=== PATIENT | female | born 1985 | race Caucasian/White ===

== ENCOUNTER 2018-12-24 09:32 | Outpatient (REF) | payer BC, SELFPAY ==
[2018-12-24 13:09] LABS: Cholesterol 226 mg/dL (50-200); Glucose 95 mg/dL (70-100); HDL Cholesterol 56 mg/dL (40-60); LDL CHOLESTEROL 141 mg/dL (<100); Triglyceride 109 mg/dL (30-150)
== END 2018-12-24 09:52 ==
LOC: NCHCN 09:32
PROVIDERS: PCP Nurse Practitioner Family; Visit Provider Nurse Practitioner Family
DX: Z00.00 Encounter for general adult medical examination without abnormal findings (principal); Z13.1 Encounter for screening for diabetes mellitus; Z13.220 Encounter for screening for lipoid disorders
CPT/HCPCS: 80061; 82947; 83721

== ENCOUNTER 2019-03-18 12:51 | Outpatient (REF) | payer BC, SELFPAY ==
[2019-03-19 14:52] LABS: Chlamydia Result Negative; GC Result Negative; Specimen Description CERVIX
== END 2019-03-18 13:11 ==
LOC: LBN 12:51
PROVIDERS: PCP Nurse Practitioner Family; Visit Provider Nurse Practitioner Family
DX: Z11.3 Encounter for screening for infections with a predominantly sexual mode of transmission (principal)
CPT/HCPCS: 87491; 87591

== ENCOUNTER 2020-01-10 01:00 | Outpatient (CLI) | payer BC, SELFPAY ==
--- NOTE | 2020-01-10 10:47 | DI.MAMMO_ITS ---
EXAM: MAMMO SCREENING CLINICAL HISTORY: FAMILY H/O BREAST CA, Z80.3, [facility], Z00.00 TECHNIQUE: Mammograms were interpreted according to the usual protocol including computer analysis w [employer] CAD system, tomosynthesis and C-view imaging. COMPARISON: Baseline examination FINDINGS: The breasts are composed of heterogeneously dense fibroglandular densities, Breast Density category C . No suspicious masses or suspicious microcalcifications are seen. No skin thickening or abnormal axillary lymph nodes are seen. There has been no significant change from prior exams. IMPRESSION: BI-RADS Category 1: Negative mammogram. Yearly screening mammography is recommended. Breast density category C, heterogeneously dense tissue which decreases the sensitivity of the mammog anastacio. The mammogram demonstrates the patient's breast tissue is dense. Dense breast tissue is very common a nd is not abnormal but dense breast tissue can make it harder to find cancer on a mammogram. Also, de nse breast tissue may increase breast cancer risk. This information about the result of the mammogram report was provided to the patient to raise their awareness. Use this report when you speak with the patient about their risks for breast cancer, which includes their family history. At that time, you may recommend additional screening tests (Ultrasound or MRI) as they might be useful based on their r isk. A negative radiographic report should not delay biopsy if a dominant or clinically suspicious mass is present. Up to ten percent of cancers are not identified on mammography. A negative report may reinforce clinical impression. Adenosis and dense breasts may obscure an underlying neoplasm. False positive reports average 6 to 10%.
== END 2020-01-10 01:20 ==
PROVIDERS: PCP Nurse Practitioner Family; Visit Provider Nurse Practitioner Family
DX: Z00.00 Encounter for general adult medical examination without abnormal findings (principal); Z12.31 Encounter for screening mammogram for malignant neoplasm of breast; Z80.3 Family history of malignant neoplasm of breast
CPT/HCPCS: 77063; 77067

== ENCOUNTER 2020-10-09 03:26 | Outpatient (CLI) | payer BC, SELFPAY ==
[2020-10-09 11:21] LABS: Abs Immature Grans 0.03 10^3/uL (0.0-0.06); Absolute Basophil Count 0.04 10^3/uL (0.0-0.2); Absolute Eosinophil Count 0.05 10^3/uL (0.0-0.7); Absolute Lymphocyte Count 1.99 10^3/uL (1.2-3.4); Absolute Monocyte Count 0.55 10^3/uL (0.1-0.8); Absolute Neutrophil Count 3.86 10^3/uL (1.2-6.7); Basophils % 0.6; Eosinophils % 0.8; HCT 36.9 % (36.0-46.0); HGB 12.4 g/dL (11.2-15.7); Immature Grans % 0.5; Lymphocytes % 30.5; MCH 30.6 pg (27.0-33.0); MCHC 33.6 % (32.0-36.0); MCV 91.1 fL (80-95); MPV 10.3 fL (8.0-11.0); Monocytes % 8.4; Neutrophils % 59.2; Nucleated RBC 0 %; Platelet Count 224 10^3/uL (130-400); RBC 4.05 10^6/uL (3.93-5.22); RDW 11.9 % (11.7-14.6); RDW-SD 39.1 fL; WBC 6.52 10^3/uL (4.4-10.8)
[2020-10-09 12:05] LABS: TSH (W/Ref FT4) 1.48 uIU/mL (0.36-3.74)
[2020-10-09 12:33] LABS: *AMPHETAMINES SCREEN URINE Negative (Negative); *BARBITURATES SCREEN URINE Negative (Negative); *BENZODIAZEPINES SCREEN URINE Negative (Negative); Cannabinoids THC Negative (Negative); Cocaine Screen,Urine Negative (Negative); METHADONE URINE SCREEN Negative (Negative); OPIATES URINE SCREEN Negative (Negative)
[2020-10-09 12:41] LABS: Tricyclic Antidepressants Negative (Negative)
[2020-10-10 10:09] LABS: Hepatitis B Surface Ag Negative (Negative)
[2020-10-10 10:24] LABS: Rubella IgG Ab (UVM) Positive (See Note); Varicella IgG Antibody Positive (See Note)
[2020-10-10 10:28] LABS: Syphilis Serology (RPR) Negative (Negative)
[2020-10-10 10:47] LABS: HIV-1/2 Ag & Ab Screen Negative (Negative)
[2020-10-10 10:57] LABS: Hepatitis C Ab w Rflx HCV PCR Negative (Negative)
[2020-10-10 14:50] LABS: Chlamydia Result Negative (Negative); GC Result Negative (Negative)
[2020-10-12 10:54] LABS: Buprenorphine Negative ng/mL (Cutoff: 5.0); Norbuprenorphine Negative ng/mL (Cutoff: 2.5)
[2020-10-17 01:00] LABS: Specimen WB Whole Blood
[2020-10-18 22:08] LABS: Specimen WB Whole Blood
== END 2020-10-09 03:27 | disposition home or self-care (01) ==
LOC: LBO 03:26
PROVIDERS: Advanced Practice Midwife; PCP Nurse Practitioner Family; Visit Provider Advanced Practice Midwife
DX: Z34.91 Encounter for supervision of normal pregnancy, unspecified, first trimester (principal); Z11.3 Encounter for screening for infections with a predominantly sexual mode of transmission; Z11.4 Encounter for screening for human immunodeficiency virus [HIV]; Z11.59 Encounter for screening for other viral diseases; Z01.84 Encounter for antibody response examination
CPT/HCPCS: 36415; 80307; 81329; 86787; 86803; 86850; 86900; 86901; 87340; 87389; 87491; 87591; 81220; 84443; 85025; 86592; 86762; 87086; 87480; 87510; 87660

== ENCOUNTER 2020-10-09 13:13 | Outpatient (REF) | payer BC, SELFPAY ==
--- NOTE | 2020-10-09 10:20 | PAPFT_PTH ---
PATIENT: Sanaz Avendaño LOC: [place] U#:[id number] AGE/SX: 34/F ROOM: RE10/09/[address]: Brandy Jim CNM : 1985 BED: DIS: 10/09/2020 SPEC #: [id number] RECD: 10/09/20 13:22 STATUS: BOB RERanjith #: [id number] SANIYA: 10/09/20 10:[address]: Brandy Jim DEPT: [facility] Cytology RECD BY: Angela Kruse ENTERED: 10/09/20 13:22 SP TYPE: PAPFT OTHR DR: Kathy Larios Tissues: 1 - CX/ENDOCX FOR PAP SMEARS Procedures: PAP THIN PREP/UVM Screening HPV DNA PROBE Comments: [id number]
== END 2020-10-09 13:14 | disposition home or self-care (01) ==
LOC: LBN 13:13
PROVIDERS: PCP Nurse Practitioner Family; Visit Provider Advanced Practice Midwife
DX: Z12.4 Encounter for screening for malignant neoplasm of cervix (principal); Z11.51 Encounter for screening for human papillomavirus (HPV)
CPT/HCPCS: 88142; 87624

== ENCOUNTER 2020-11-07 07:28 | Outpatient (CLI) | payer BC, SELFPAY ==
[2020-11-07 14:36] LABS: Kit/Specimen SENT
== END 2020-11-07 07:29 | disposition home or self-care (01) ==
LOC: LBO 07:35
PROVIDERS: PCP Nurse Practitioner Family; Visit Provider Advanced Practice Midwife
DX: Z34.92 Encounter for supervision of normal pregnancy, unspecified, second trimester (principal); Z36.89 Encounter for other specified antenatal screening
CPT/HCPCS: 36415

== ENCOUNTER 2021-01-30 03:58 | Outpatient (CLI) | payer BC, SELFPAY ==
[2021-01-30 09:44] LABS: HCT 35.6 % (36.0-46.0); HGB 11.8 g/dL (11.2-15.7); MCHC 33.1 % (32.0-36.0); MCV 93.4 fL (80-95); MPV 10.2 fL (8.0-11.0); Platelet Count 205 10^3/uL (130-400); RBC 3.81 10^6/uL (3.93-5.22); RDW 12.6 % (11.7-14.6); RDW-SD 43.1 fL; WBC 7.96 10^3/uL (4.4-10.8)
[2021-01-30 09:58] LABS: Glucose,1 Hr (Glucola) 136 mg/dL (80-140)
== END 2021-01-30 03:59 | disposition home or self-care (01) ==
LOC: LBO 03:58
PROVIDERS: PCP Nurse Practitioner Family; Visit Provider Advanced Practice Midwife
DX: O09.523 Supervision of elderly multigravida, third trimester (principal); O36.0130 Maternal care for anti-D [Rh] antibodies, third trimester, not applicable or unspecified
CPT/HCPCS: 36415; 82950; 85027; 86850; 90384

== ENCOUNTER 2021-02-02 01:37 | Outpatient (CLI) | payer BC, SELFPAY ==
[2021-02-02 09:25] LABS: Glucose 1 Hour 131 mg/dL
[2021-02-02 11:40] LABS: Glucose 3 Hour 67 mg/dL
== END 2021-02-02 01:38 | disposition home or self-care (01) ==
LOC: LBO 01:37
PROVIDERS: PCP Nurse Practitioner Family; Visit Provider Advanced Practice Midwife
DX: O26.893 Other specified pregnancy related conditions, third trimester (principal); R73.09 Other abnormal glucose; Z3A.28 28 weeks gestation of pregnancy
CPT/HCPCS: 36415; 82951

== ENCOUNTER 2021-03-20 17:50 | Outpatient (REF) | payer BC, SELFPAY ==
[2021-03-20 17:30] LABS: *AMPHETAMINES SCREEN URINE Negative (Negative); *BARBITURATES SCREEN URINE Negative (Negative); *BENZODIAZEPINES SCREEN URINE Negative (Negative); Cannabinoids THC Negative (Negative); Cocaine Screen,Urine Negative (Negative); METHADONE URINE SCREEN Negative (Negative); OPIATES URINE SCREEN Negative (Negative)
[2021-03-20 17:31] LABS: Tricyclic Antidepressants Negative (Negative)
[2021-03-27 09:50] LABS: Buprenorphine Negative ng/mL (Cutoff: 5.0); Norbuprenorphine Negative ng/mL (Cutoff: 2.5)
== END 2021-03-20 17:51 | disposition home or self-care (01) ==
LOC: LBN 17:50
PROVIDERS: PCP Nurse Practitioner Family; Visit Provider Advanced Practice Midwife
DX: Z34.93 Encounter for supervision of normal pregnancy, unspecified, third trimester (principal); Z3A.36 36 weeks gestation of pregnancy
CPT/HCPCS: 80307

== ENCOUNTER 2021-03-27 19:14 | Outpatient (REF) | payer BC, SELFPAY | END 2021-03-27 19:15 | disposition home or self-care (01) | LOC: LBN 19:14 | PROVIDERS: PCP Nurse Practitioner Family; Visit Provider Advanced Practice Midwife | DX: Z34.93 Encounter for supervision of normal pregnancy, unspecified, third trimester (principal); Z36.85 Encounter for antenatal screening for Streptococcus B; Z3A.36 36 weeks gestation of pregnancy | CPT/HCPCS: 87081 ==

== ENCOUNTER 2021-04-14 21:14 | Inpatient (IN) | payer BC, SELFPAY ==
--- NOTE | 2021-04-14 21:24 | HPE_ITS ---
Date of service: 04/14/21 Time of Service: 21:54 Assessment and Plan Assessment and plan (1) 39 weeks gestation of : Status: Acute Assessment and plan: A: 35 yo @ 39+3 wks, SROM clear since 1700 confirmed, early labor CF carrier, AMA, Rh neg (RhoGam @ 28 wks), GBS neg Umbilical hernia to be repaired S/P duodenal atresia repaired at Consults completed at [facility] No increased risk for SD or PPH on admission P: Admit to BC, CBC, T&S, COVID swab Pt desires to use tub, nitrous Encourage rest & oral hydration through the night Will advise pitocin augmentation in the morning if not progressing (2) PROM with onset of labor within 24 hours of rupture: Status: Acute OB-HPI Labor/Delivery History of Present Illness Reason for Visit: LABOR @ 39 WEEKS Chief Complaint: Uterine Contractions; Suspected Rupture of Membranes , Associated Signs and Symptoms of Suspected ROM: Lost mucous plug along with gush of pink tinged fluid at 1700, has had periodic pink fluid trickle since then, wearing a pad. ; Maternal Discomfort , Associated Signs and Symptoms of Maternal Discomfort: Irregular mild contractions since last night, became more regular at 1700 but still 5-7 minutes apart, timed at 3-4 minutes apart at 2100, feeling mostly back pain.. HERSON Calculator Estimated Delivery Date Method Current WG Current Estimate 04/18/21 LMP (Certain) 39w 3d Other Estimates 04/16/21 Ultrasound #1 39w 5d History of Present Expected Delivery Route/Plan - CNM FOB/boyfriend - [facility] GBS negative Would like to use the tub Specific Issues/Plan 1. AMA at time of delivery 1a. desire [place] testing, dating US was not in chart on day of initial OB for PAP to be done will need to come back for this test 1b. Offered ref to [facility] for level 2 sono and MFM consult. [place] test neg 2. Desired SMA and CF orders placed 2a. CF trait +, offered FOB testing and Genetic counseling, patient to review with FOB who has no insurance and get back to us if further testing or counseling is desired. 2b. SMA neg 3. 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 Referral to [facility] for Level II US- Normal anatomic survey, repeat February 08 recheck GI system 3b. Plan for 30 wk appt with MD to look at abd scars and clear for delivery @ [facility], done 02/15/21 4. Risk increased for HTN due to nullip and AMA; will start low dose ASA therapy 5. Headaches which trigger nausea and vomiting, also constipation- magnesium daily recommended. 6. Umbilical hernia- She contacted surgery at [facility] who recommended that she schedule an appointment after delivery 7. Rh neg, 28 wk RhoGam given 01/30/21 8. Glucola at 28 wks 136; 3 hr GTT -WNL x 4 9. Both pt and FOB are COVID vaccinated Assessment: History Reviewed & Current Review of Systems All systems reviewed & are unremarkable except as noted in HPI and below Constitutional Constitutional: Reports as per HPI Cardiovascular Cardiovascular: Reports system reviewed and no additional complaints, except as documented Respiratory Respiratory: Reports as per HPI Gastrointestinal Gastrointestinal: Reports as per HPI Genitourinary Genitourinary: Reports system reviewed and no additional complaints, except as documented Musculoskeletal Musculoskeletal: Reports back pain Integumentary/Breasts Skin/Breast: Reports system reviewed and no additional complaints, except as documented Psychiatric Psychiatric: Reports system reviewed and no additional complaints, except as documented [facility] Medical History (Updated 04/14/21 @ 21:58 by Sharmila Nair) Elevated glucose Umbilical hernia 2011 no surgery to date Surgical History (Updated 10/09/20 @ 16:07 by Brandy Jim CNM) 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 , 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 Tear of knee, anterior cruciate ligament left knee 4 Seasons [facility] 2017 Family History (Updated 10/09/20 @ 09:43 by Brandy Jim CNM) Mother Breast cancer recurrence at 72 Hyperlipidemia Other Heart disease Social History (Updated 10/09/20 @ 10:49 by Brandy Jim CNM) Smoking/Tobacco Use Status: Former Tobacco Use Second Hand Exposure: No Smoking risk assessment performed?: Yes Drug use: Occasionally Counseling given: Yes Details: marijuana use sparsly in past, no current use Adopted: No Household members: spouse Housing: house Number of Children: 0 What is your relationship status?: living with partner Panel score (0-1 are the most socially isolated patients): 1 Seatbelt use: always Do you feel safe at home: Yes Do you feel safe in your relationship?: Yes Victim of physical abuse: No Victim of emotional abuse: No Victim of sexual abuse: No Would you like helpful sources: No Female Reproductive History Menstrual control method: none History History 3 Para 0 Hx # Term Pregnancies 0 Multiple births 0 Hx # Pregnancies 0 Ectopic pregnancies 0 AB induced 2 Hx Number of Living Children 0 AB spontaneous 0 Meds Allergies and Home Medications Allergies Allergy/AdvReac Type Severity Reaction Status Date / Time Sulfa (Sulfonamide AdvReac Intermediate hives Unverified 04/14/21 22:00 Antibiotics) DEET AdvReac Intermediate cold and Uncoded 04/14/21 22:00 clammy sweat, nausea Home Medications Medication Instructions Recorded Confirmed Type prenat.vits,carlota,kdt-ovoo-hytyr 1 tab PO DAILY 09/19/20 04/14/21 History aspirin 81 mg tablet,delayed 81 mg PO DAILY 11/06/20 04/14/21 History release magnesium oxide 400 mg PO DAILY 01/01/21 04/14/21 History Exam Physical Exam Vital signs: 136/84, 105, 18, 98.2 Vital Signs Reviewed: Yes Constitutional Constitutional: mild distress (pt smiling and conversant between contrx's, teary and with back pain during contrx's) Detailed Labor and Delivery Exam Dilation: 1.5 Effacement (%): 100 station: -2 Position: LOP Cervix position: posterior Consistency: soft HAUSER Score(Cervical Ripeness Score): 8 Amniotic Membrane Status: Ruptured Rupture Method: Spontaneous Amniotic Fluid: Clear and Afton Tinged Pooling: Positive Nitrazine: Positive Ferning: Present Contraction Frequency(min): q4-5 Contraction Duration(sec): 60 Contraction Intensity: Mild/Moderate Fetus A Heart Rate Baseline: 130 Monitor Accelerations: 15 X 15 Monitor Decelerations: None Variability: Moderate (6-25 BPM) Presentation: Cephalic Categories: Category I Est. Weight: 7 lb 11.459 oz Est. Weight: 3500 gms Date of Membrane Rupture: 04/14/21 Time of Membrane Rupture: 17:00 HEENT Exam HEENT Exam: Normal Neck Exam Neck Exam: Normal Chest/Brest/Axilla Exam Chest Exam: Normal Breast Exam Breast Exam: Not Done Respiratory Exam Respiratory Exam: Normal Cardiovascular Exam Cardiovascular Exam: Normal Abdominal Exam Abdominal Exam: Normal (gravid, nontender) Rectal Exam Rectal Exam: Not Done Exam Exam: Normal Extremities Exam Extremities Exam: Normal Back/Spine/Pelvis Exam Back Exam: Normal Pelvis Adequate: Yes Skin Exam Skin Exam: Normal Neurological Exam Neurological Exam: Normal Psychiatric Exam Psychiatric Exam: Normal Results Results Group Beta Strep: Negative Blood Type: B- Rubella Status: Immune Varicella Immunity: Immune Risk Assessment Risk for Shoulder Dystocia Historical/Initial OB: NEGATIVE FOR: Pelvic Abnormality, Pre- BMI>30, Previous Shoulder Dystocia or Previous Macrosomia Increased Risk?: Yes Counseling: EFW in 92nd percentile at 30 wk ultrasound, primipara, nml 3 hr GTT at 28 wks Date/Initial: 10/09/20 Delivery Plan @ 36wks: NVD planned Risk for Pre-Eclampsia Daily Dose ASA Indicated: Yes Date Initiated/Initials: 10/09/20 Yes, if one or more: NEGATIVE FOR: Hx Pre-E/Gest HTN, Chronic HTN, Multiple Gestation, Pre-gestational DM, Renal Disease, Systemic Lupus or APA Syndrome Yes, if 2 or more: POSITIVE FOR: Nulliparity and Age>= 35 yrs; NEGATIVE FOR: >10yr btwn pregnancies, BMI>30, ethinicty, Mother/Sister w/ Pre-E or Previous IUGR Risk for Post- Hemorrhage Initial: NEGATIVE FOR: Multiple Gestation, Previous PPH, Known Clotting Deficiency, Grand Multiparity or Anticoagulation At Risk?: No Counseled re: Active Management: Yes Risks Reviewed Risks Reviewed Upon Admission: Yes
[2021-04-14 21:40] VITALS: BP 136/84; PULSE 105; RESP 18; TEMP 36.8
[2021-04-14 22:13] VITALS: BP 136/84; PULSE 105; RESP 18; TEMP 36.8
[2021-04-14 22:24] LABS: HCT 40.6 % (36.0-46.0); HGB 13.6 g/dL (11.2-15.7); MCH 30.8 pg (27.0-33.0); MCHC 33.5 % (32.0-36.0); MCV 91.9 fL (80-95); MPV 11.6 fL (8.0-11.0); Platelet Count 216 10^3/uL (130-400); RBC 4.42 10^6/uL (3.93-5.22); RDW 12.2 % (11.7-14.6); RDW-SD 41.3 fL; WBC 11.68 10^3/uL (4.4-10.8)
[2021-04-14 22:25] LABS: Source Nasal/Nares
[2021-04-14] MEDS: Mylanta Suspension 30 ML CUP PO (22:51)
[2021-04-14 23:18] LABS: COVID-19 PCR Negative (Negative)
[2021-04-15] VITALS (34 sets, daily range): BP systolic 115–142; BP diastolic 60–91; PULSE 73–109; RESP 16–18; TEMP 36.4–37.7; O2SAT 94–100; BMI 30.7
[2021-04-15] MEDS: Calcium Carbonate *TUMS* 500 MG CHEW 1000 MG PO ×3 (03:10→15:59)
--- NOTE | 2021-04-15 07:10 | W.PM.OBNL1 ---
Date of service: 04/15/21 Time of Service: 07:10 Pelvic Exam Dilation: 6 Effacement (%): 100 station: -1 Position: LOT Cervix Position: anterior Consistency: soft Vaginal Exam Presentation: Cephalic Contractions Monitor Mode: External Contraction Frequency(min): q3-4 Intensity: Moderate Fetus A Monitor: External (US) Heart Rate Baseline: 135 Variability: Moderate (6-25 BPM) Categories: Category I Decelerations: None Amniotic Membrane Status: Ruptured (since 1699 yesterday) Rupture Method: Spontaneous Amniotic Fluid: Pen Mar Tinged Assessment and Plan Assessment and plan (1) PROM with onset of labor within 24 hours of rupture: Status: Acute Assessment and plan: A: Active labor in primipara SROM x14 hrs, GBS neg Category 1 tracing at this time P: Expectant management. Anticipate Intermittent auscultation per protocol Encourage oral hydration Comfort measures as desired, Pain management options reviewed Qualifiers: PROM gestational age: full term Qualified Code(s): O42.02 - Full-term premature rupture of membranes, onset of labor within 24 hours of rupture Objective Abnormal lab results 04/14/21 Range/Units 22:10 WBC 11.68 H (4.4-10.8) 10^3/uL MPV 11.6 H (8.0-11.0) fL Temp Pulse Resp BP 98.2 F 105 H 18 136/84 04/14/21 22:13 04/14/21 22:13 04/14/21 22:13 04/14/21 22:13 Laboratory Results WBC 11.68 10^3/uL (4.4-10.8) H 04/14/21 22:10 RBC 4.42 10^6/uL (3.93-5.22) 04/14/21 22:10 Hgb 13.6 g/dL (11.2-15.7) 04/14/21 22:10 Hct 40.6 % (36.0-46.0) 04/14/21 22:10 MCV 91.9 fL (80-95) 04/14/21 22:10 MCH 30.8 pg (27.0-33.0) 04/14/21 22:10 MCHC 33.5 % (32.0-36.0) 04/14/21 22:10 RDW 12.2 % (11.7-14.6) 04/14/21 22:10 Plt Count 216 10^3/uL (130-400) 04/14/21 22:10 MPV 11.6 fL (8.0-11.0) H 04/14/21 22:10 COVID-19 Source Nasal/Nares 04/14/21 22:05 SARS-CoV-2 (PCR) Negative (Negative) 04/14/21 22:05 Patient ABO/Rh B Negative 04/14/21 22:10 Antibody Screen NEGATIVE 04/14/21 22:10 Subjective Interval history since last seen: Contractions continued through the night though pt was able to doze in between and has been using nitrous inhalant since 0300, is fairly comfortable lying on her left side. Results Abnormal Lab Findings:
--- NOTE | 2021-04-15 10:25 | W.PM.OBNL1 ---
Date of service: 04/15/21 Time of Service: 10:25 Pelvic Exam Dilation: 7 Effacement (%): 100 station: -1 Position: LOT Cervix Position: anterior Consistency: soft Vaginal Exam Presentation: Cephalic Contractions Monitor Mode: Palpation Contraction Frequency(min): q2-4 Contraction Duration(sec): 60-90 Intensity: Moderate/Strong Fetus A Monitor: Doppler Heart Rate Baseline: 135 FHR Rhythm: Regular Accelerations: Present Decelerations: None Assessment and Plan Assessment and plan (1) PROM with onset of labor within 24 hours of rupture: Status: Acute Assessment and plan: A: Active labor, progressed to 7/100% vtx -1 SROM x17 hrs P: Continue expectant management Comfort measures as desired, currently pt is using tub & nitrous Monitor progress Anticipate Qualifiers: PROM gestational age: full term Qualified Code(s): O42.02 - Full-term premature rupture of membranes, onset of labor within 24 hours of rupture Objective Pt has been resting in bed since 0600, dozing or resting with eyes closed Using nitrous with good effect Reports increasing intensity of labor, blood tinged fluids continue vaginally Normotensive, afebrile FOB at bedside providing effective support FHT reassuring by intermittent auscultation Subjective Interval history since last seen: Pt reports contractins seem to be more frequent and stronger, back pain has lessened but is replaced with increased pelvic pressure. Using nitrous for past few hours, desires to get into the tub.
[2021-04-15] MEDS: Mylanta Suspension 30 ML CUP PO (11:04)
--- NOTE | 2021-04-15 13:56 | W.PM.OBNL1 ---
Date of service: 04/15/21 Time of Service: 13:57 Informed Consent Informed Consent: Augmentation of Labor and Regional Anesthesia Fetus A Monitor: External (US) Heart Rate Baseline: 135 Presentation: Cephalic Variability: Moderate (6-25 BPM) Categories: Category I Accelerations: 15 X 15 Decelerations: None Assessment and Plan Assessment and plan (1) PROM with onset of labor within 24 hours of rupture: Status: Acute Qualifiers: PROM gestational age: full term Qualified Code(s): O42.02 - Full-term premature rupture of membranes, onset of labor within 24 hours of rupture (2) Slow slope active phase of labor: Status: Acute Assessment and plan: A: Inadequate contraction pattern No cvx change for 3 hrs SROM x21 hrs Category 1 tracing P: After R&B discussed, pt opts for pit aug and regional anesthesia IV access initiated, will bolus 500 ml D5LR, then 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, will discuss intrathecal vs epidural Objective Vital Signs Reviewed: Yes Objective Narrative Objective Narrative: Cvx check at 1300 is unchanged from exam at 1000 Anterior cvx lip is becoming edematous @ 7/100% vtx -1 Category 1 tracing continues Pt has not eaten since yesterday, minimal oral fluid intake Voided large amt early this morning, and 750 ml dark yellow urine at 1300 Attempted to eat jello but vomited after 2 bites Options for pit aug, IV hydration, and regional anesthesia discussed in detail Normotensive, afebrile, has been coping well with labor Subjective Interval history since last seen: Soaked in tub for several hours using nitrous, then requested to return to bed for EFM tracing and cvx recheck at 1300 Results Abnormal Lab Findings:
[2021-04-15] MEDS: DEXTROSE 5%-LACTATED RINGERS 1,000 ML 500 ML IV (14:31)
[2021-04-15] MEDS: Normal Saline Flush 10 ML SYR IVP (14:31)
--- NOTE | 2021-04-15 14:49 | ANES.PREOP_ITS ---
General Info Date of Service Date Performed: 04/15/21 Height: 5 ft 6 in Weight: 86.183 kg Body Mass Index (BMI): 30.7 Meds Allergies and Home Medications Allergies Allergy/AdvReac Type Severity Reaction Status Date / Time Sulfa (Sulfonamide AdvReac Intermediate hives Unverified 04/15/21 11:06 Antibiotics) DEET AdvReac Intermediate cold and Uncoded 04/15/21 11:06 clammy sweat, nausea Home Medication Medication Instructions Recorded prenat.vits,carlota,jur-felk-wiyyq 1 tab PO DAILY 09/19/20 aspirin 81 mg tablet,delayed 81 mg PO DAILY 11/06/20 release magnesium oxide 400 mg PO DAILY 01/01/21 Current Visit Medications: Current Medications Generic Name Dose Route Start Last Admin Trade Name Freq PRN Reason Stop Dose Admin Al Hydrox/Mg Hydrox/Simethicone 30 ml 04/14/21 22:28 04/15/21 11:04 Mylanta Suspension 30 Ml Cup PO 30 ml Q3H PRN PRN Administration Calcium Carbonate 1,000 mg 04/15/21 03:05 04/15/21 07:56 Calcium Carbonate *Tums* 500 Mg Chew PO 1,000 mg QID PRN PRN Administration Ringer's Solution 1,000 mls @ 125 mls/hr 04/15/21 14:00 IV INFUSION MARCELINA Sodium Chloride 500 mls @ 0 mls/hr 04/15/21 13:54 Saline 500ml Bag IV PRN PRN As Directed Oxytocin/Sodium Chloride 30 unit in 500 mls @ 2 mls/hr 04/15/21 14:00 Pitocin/Normal Saline IV INFUSION [facility] Protocol 2 MILLIUNITS/MIN Dextrose/Lactated Ringer's 1,000 mls @ 500 mls/hr 04/15/21 14:00 04/15/21 14:31 Dextrose 5%-Lr IV 500 mls/hr INFUSION MARCELINA Administration IV Miscellaneous Supplies 1 each 04/15/21 14:00 Iv Access IV DIRECTED MARCELINA Sodium Chloride 0 ml 04/15/21 13:54 04/15/21 14:31 Normal Saline Flush 10 Ml Syr IVP 10 ml PRN PRN Administration PFSH Active Problems Active Problems: Problem Status Onset Code Slow slope active phase of labor O62.2 PROM with onset of labor within 24 hours of rupture O42.00 39 weeks gestation of Z3A.39 Allergy to sulfa drugs Z88.2 Umbilical hernia K42.9 Rh negative state in antepartum period O26.899, Z67.91 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 2017 Tobacco Smoking/Tobacco Use Status: Former Tobacco Use Second hand exposure: No Substance Use Substance use: Occasionally Substance use type: does not use and marijuana Counseling given: Yes Details: marijuana use sparsly in past, no current use Prental History History 3 Para 0 Hx # Term Pregnancies 0 Multiple births 0 Hx # Pregnancies 0 Ectopic pregnancies 0 AB induced 2 Hx Number of Living Children 0 AB spontaneous 0 Vital Signs and Lab Results Vital Signs Most Recent Vital Signs in EMR: Most Recent Vital Signs Temp Pulse Resp BP Pulse Ox 36.9 C 80 18 139/89 96 04/15/21 13:01 04/15/21 13:01 04/15/21 13:01 04/15/21 13:01 04/15/21 13:01 Lab Results Result Diagrams: 04/14/21 22:10 Blood Type / Crossmatch: Patient ABO/Rh B Negative 04/14/21 22:10 04/14/21 Antibody Screen NEGATIVE 04/14/21 22:10 04/14/21 Complete Blood Count: White Blood Count 11.68 10^3/uL (4.4-10.8) H 04/14/21 22:10 04/14/21 Red Blood Count 4.42 10^6/uL (3.93-5.22) 04/14/21 22:10 04/14/21 Hemoglobin 13.6 g/dL (11.2-15.7) 04/14/21 22:10 04/14/21 Hematocrit 40.6 % (36.0-46.0) 04/14/21 22:10 04/14/21 Platelet Count 216 10^3/uL (130-400) 04/14/21 22:10 04/14/21 Complete Metabolic Panel: No Data to Display Liver Function Panel: No Data to Display Coagulation Panel: No Data to Display Cardiac Panel: No Data to Display Arterial Blood Gas: No Data to Display Venous Blood Gas: No Data to Display Pancreas Panel: No Data to Display Thyroid Panel: No Data to Display Infectious Disease: Coronavirus (COVID-19)(PCR) Negative (Negative) 04/14/21 22:05 04/14/21 Coronavirus 2019 Source Nasal/Nares 04/14/21 22:05 04/14/21 Blood Cultures: No Data to Display Toxicology Panel: Urine Amphetamines Screen Negative (Negative) 03/20/21 09:00 03/20/21 Urine Benzodiazepines Screen Negative (Negative) 03/20/21 09:00 03/20/21 Urine Barbiturates Screen Negative (Negative) 03/20/21 09:00 03/20/21 Urine Cocaine Screen Negative (Negative) 03/20/21 09:00 03/20/21 Urine Methadone Screen Negative (Negative) 03/20/21 09:00 03/20/21 Urine Opiates Screen Negative (Negative) 03/20/21 09:00 03/20/21 Ur Tricyclic Antidepressants Screen Negative (Negative) 03/20/21 09:00 03/20/21 Ur Tetrahydrocannabinol (THC) Scrn Negative (Negative) 03/20/21 09:00 03/20/21 Panel: No Data to Display Anesthesia Assessment and Plan Anesthesia History Personal History: No History of Anesthesia Complications and PONV Family History: No Family History of Anesthesia Complications Exercise Tolerance Exercise Tolerance: Metabolic Equivalents>4 Pertinent Negatives Pertinent Negatives: No Major Cardiovascular Symptoms or Complaints and No Major Pulmonary Symptoms or Complaints Cardiac & Pulmonary Exam Cardiac Exam: Normal S1/S2 Heart Sounds Pulmonary Exam: Clear Bilateral Breath Sounds Airway Exam Known Difficult Airway: No Mallampati Class: 1 Mouth Opening: Normal (> 3cm) Thyromental Distance: Greater than 3 cm Neck Range of Motion: Full ROM Neck Circumference: Normal Teeth Condition: Normal Dentition ASA Classification ASA Score: ASA 2 Emergency Case?: No NPO Status NPO Status: NPO Clears >2 hours, Solids >8 hours Status Status: Confirmed Anesthesia Plan Resuscitation Status: Full Code Anesthesia Technique: Epidural Anesthesia Airway Planned: Natural Airway Pain Management: Surgeon and patient request nerve block Monitors Used: Standard Monitors
--- NOTE | 2021-04-15 15:22 | W.ANESNEU ---
Epidural/Spinal Catheter Date Performed: 04/15/21 Procedure Start: 14:55 Procedure Stop: 15:22 Requesting Provider: Sharmila Nair Procedure Location: Obstetrics Reason Performed: Labor Epidural Standard Monitors Applied: Blood Pressure, SpO2 and See EMR for corresponding vital signs Patient Position: Sitting Sedation Given (Indicate Dose Given): No Sedation given Patient Mental Status: Awake Sterility: Hand Hygiene, Surgical Cap, Surgical Mask, Sterile Gloves, Sterile Drape/Sheet, Eye Protection and Chlorhexidine Procedure Location: L3-L4 Interspace Epidural Needle: Tuohy 18 Gauge Needle Length: 3.5 Inch Needle Approach: Midline Epidural Procedure: Skin Prepped, Sterile Drape Placed, 1% Lidocaine to skin and subcutaneous tissue with 25G needle, Tuohy Needle placed, SAUL to Saline Used, Epidural Catheter Placed, Negative Heme, Negative CSF Flow and Tuohy Needle Removed Catheter Placed?: Catheter Placed Test Dose (Indicate Dose Given): 3ml 1.5% Lidocaine with 1:200K Epinephrine Given Loss of Resistance Depth (cm): 7 Catheter depth at skin (cm): 15 Dressing: Sorbaview Dressing Placed Epidural Provider Bolus (Indicate Dose Given): Total bolus dose given in 3-5 ml divided doses and Total Ropivacaine 0.1% with Fentanyl 2mcg/ml Given from pump (ml) Dose:: 10 mL Additives (Indicate Dose Given ): None Infusion Medication: Medication Infusion Began Medication Infusion: Ropivacaine 0.1% with Fentanyl 2mcg/ml Maintenance Infusion Rate (ml/hour): 12 PCEA Bolus Dose (ml): 5 Block Level: T10 Paresthesia: None Ultrasound: Not Used Number of Attempts (See previous attempts in note section): 1 Procedure Tolerated: No Complications Procedure Outcome: Successful Performed By: Marlyn Lemons
[2021-04-15] MEDS: Oxytocin/Normal Saline 30 UNIT/500 ML BAG 2 UNITS IV (15:32)
--- NOTE | 2021-04-15 19:33 | W.OBDELIVERY ---
Date of service: 04/15/21 Time of Service: 19:33 OB Labor/ Delivery Information Baby A Delivery Delivery Method: Spontaneaous Presentation: Cephalic Cephalic Position: Vertex Vertex Position: Left Occipital Anterior Breech Position: N/A Cord Description-Baby A: 3 Vessels Amniotic Fluid: Clear Estimated Blood Loss: 250 Delivery Outcome: Liveborn Transferred: Remains with Mother Note: Epidural placed by 1430 and pitocin augmentation begun by 1500, category 1 tracing continued. Pt napped and rested, then reported increasing rectal pressure and vomited several times. Cvx was found to be fully dilated with head at pubic arch. 2nd stage huddle completed, coached pushing resulted in of a vigorous female over attempted intact perineum, shoulders oblique and delivered easily. handed to mother's arms immediately, pitocin infusion begun. At 6 minutes the cord was clamped and cut by FOB, cord blood was collected and [place] placenta intact with 3 VC. First degree perineal laceration repaired with 3.0 Vicryl, small clots evacuated from os, minimal rubra. Excellent family bonding observed, apgars 8/9, weight 3800 gms Providers Nurse Electronic Gluing Machine Operator: Sharmila Nair Seamless Tube Drawer: Marlyn Lemons Nurse: Haven Jolley Nurse: Austin Kiran Labor/Delivery Information Number of Babies in Womb: 1 Steroids Given: None Reason Steroids Not Administered: N/A Group Beta Strep: Negative Rubella Status: Immune Blood Type: B- Varicella Immunity: Immune Medication in Delivery: Tums/Mylanta/Pitocin/Fent/Rop Maternal Complications: Premature Rupture of Membranes Shoulder Dystocia: No Stages of Labor Onset of Labor Date: 04/14/21 Onset of Labor Time: 14:00 Complete Dilatation Date: 04/15/21 Complete Dilatation Time: 18:05 Labor - Stage 1 Duration: 24 hours and 0 minutes ROM Baby A: 04/14/21 ROM Baby A: 17:00 ROM Total Time- Baby A: [id number] Delivery Date-Baby A: 04/15/21 Delivery Time-Baby A: 18:47 Labor Stage 2 Duration: 42 minutes Placenta Delivery Date-Baby A: 04/15/21 Placenta Delivery Time-Baby A: 19:01 Labor-Stage 3 Duration: 14 minutes Total Length of Labor-Baby A: 28 hours and 47 minutes Placenta Cultured: No Placenta Status: Delivered Baby A Infant Gender: Male Gestational Status: Term (39-41.6 wks) Gestational Age in Weeks/Days: 39 Weeks and 4 Days weight: 8 lb 6.041 oz Weight Comment: 3800 gms Score-1 Minute Interval(Baby A) Heart Rate-1 minute: 100 BPM or Greater Respiratory Effort- 1 minute: Spontaneous/Strong Cry Muscle Tone-1 minute: Minimal Flexion/Extension Reflex Response-1 minute: Prompt Response Color-1 minute: Bluish Hands or Feet Total Score-1 minute: 8 Score-5 Minute Interval(Baby A) Heart Rate- 5 minute: 100 BPM or Greater Respiratory Effort-5 minute: Spontaneous/Strong Cry Muscle Tone-5 minute: Active Movement Reflex Response-5 minute: Prompt Response Color-5 minute: Bluish Hands or Feet Total Score- 5 minute: 9
--- NOTE | 2021-04-15 23:16 | W.PM.OBPNV1 ---
Date of service: 04/16/21 Time of Service: 08:15 Assessment and Plan Assessment and plan (1) Term delivered: Status: Acute Assessment and plan: A: PPD#1, nml recovery off to a good start Satisfied with experience P: Declines BCM, plans NFP Will receive RhoGam today CBC pending Plan discharge to home tomorrow Subjective Subjective Patient comments: No complaints, Pain well controlled, Tolerating diet and Flatus present baby status: Doing well, Nursing well, Rooming in and Strong Bonding Observed [place] feeding status: Exclusively breast feeding Exam Physical Exam Vital signs: Temp Pulse Resp BP Pulse Ox 98.2 F 89 18 142/91 H 96 04/15/21 22:35 04/15/21 22:35 04/15/21 22:35 04/15/21 22:35 04/15/21 22:35 Vital Signs Reviewed: Yes Constitutional Constitutional: no acute distress HEENT Exam HEENT Exam: Normal Neck Exam Neck Exam: Normal Breast Exam Bilateral: Breast Exam: Normal and Soft Nipple Exam: Normal and Uninjured Respiratory Exam Respiratory Exam: Normal Cardiovascular Exam Cardiovascular Exam: Normal Abdominal Exam Abdomen: Other (nontender, soft) Fundal Exam Fundus: Below Umbilicus and Firm Rectal Exam Rectal Exam: Normal Exam Perineum: Repair Intact Extremities Exam Extremity Exam: Normal Back/Spine/Pelvis Exam Back Exam: Normal Skin Exam Skin Exam: Normal Neurological Exam Neurological Exam: Normal Psychiatric Exam Psychiatric Exam: Normal
[2021-04-16] VITALS: BP 125/70; PULSE 89; RESP 16; TEMP 36.8; O2SAT 97
[2021-04-16] MEDS: Acetaminophen 325 MG TAB 650 MG PO ×4 (00:13→21:38)
--- NOTE | 2021-04-16 00:53 | NUR.NOTE ---
Nursing Note:Pt states she involuntarily voided in shower at 2130. Fundus massaged firm 2 below U. Pt felt fundus when firm, encouraged to massage. Pt given Tylenol as requested for perineal pain. Pt encouraged to verbalize needs
[2021-04-16 07:29] LABS: HCT 35.2 % (36.0-46.0); HGB 12.1 g/dL (11.2-15.7); MCH 31.8 pg (27.0-33.0); MCHC 34.4 % (32.0-36.0); MCV 92.4 fL (80-95); MPV 11.7 fL (8.0-11.0); Platelet Count 195 10^3/uL (130-400); RBC 3.81 10^6/uL (3.93-5.22); RDW 12.4 % (11.7-14.6); RDW-SD 42.1 fL; WBC 12.06 10^3/uL (4.4-10.8)
[2021-04-16 08:10] VITALS: BP 131/87; PULSE 76; RESP 16; TEMP 36.7; O2SAT 99
--- NOTE | 2021-04-16 08:52 | W.ANESPOSTOP ---
Postoperative Evaluation Date, Time and Location Date Performed: 04/16/21 Time Performed: 08:53 Patient Location: Obstetrics Vital Signs Most Recent Imported Vital Signs: Most Recent Vital Signs Temp Pulse Resp BP Pulse Ox 36.8 C 89 16 125/70 97 04/16/21 00:00 04/16/21 00:00 04/16/21 00:00 04/16/21 00:00 04/16/21 00:00 Most Recent Manually Entered Vital Signs: Adult Blood Pressure: 131/87 Heart Rate: 76 Respirations: 16 Oxygen Saturation (%): 99 Temperature (C): 36.7 C Pain Score (0-10 Scale): 0 Pain Score Most Recent Pain Score: Most Recent Pain Score Pain Level [Genital] 6 04/16/21 00:00 Assessment Mental Status: Awake (Alert & Oriented to Patient Baseline) Airway and Respiratory Function: Patent airway with normal (patient baseline) respiratory exam Cardiovascular Function: Hemodynamically Stable Hydration Status: Adequately Hydrated Nausea & Vomiting: No Nausea or Vomiting Pain: Pt. Denies Any Pain Peripheral Nerve Block: Patient did not receive a nerve block
[2021-04-16 08:53] VITALS: BP 131/87; PULSE 76; RESP 16; TEMPC 36.7; O2SAT 99
[2021-04-16] MEDS: Calcium Carbonate *TUMS* 500 MG CHEW 1000 MG PO (09:48)
[2021-04-16] MEDS: Ibuprofen 600 MG TAB PO ×3 (09:48→21:39)
[2021-04-16 20:00] VITALS: BP 128/76; PULSE 80; RESP 18; TEMP 36.7; O2SAT 99
[2021-04-17 08:00] VITALS: BP 129/86; PULSE 63; RESP 14; TEMP 36.4
[2021-04-17] MEDS: Ibuprofen 600 MG TAB PO (08:48)
[2021-04-17] MEDS: Acetaminophen 325 MG TAB 650 MG PO (08:48)
--- NOTE | 2021-04-17 09:00 | W.PM.OBPNV1 ---
Date of service: 04/17/21 Time of Service: 09:00 Assessment and Plan Assessment and plan (1) Term delivered: Status: Acute Assessment and plan: A: PPD#2, nml recovery P: Declines BCM, plans NFP Discharge to home today Written instructions reviewed and given to pt F/up at 2 & 6 wks Subjective Subjective Patient comments: Pain well controlled, Tolerating diet and Flatus present [place] baby status: Doing well, Nursing well, Rooming in and Strong Bonding Observed feeding status: Exclusively breast feeding Exam Physical Exam Vital signs: Temp Pulse Resp BP Pulse Ox 98.0 F 80 18 128/76 99 04/16/21 20:00 04/16/21 20:00 04/16/21 20:00 04/16/21 20:00 04/16/21 20:00 Constitutional Constitutional: no acute distress HEENT Exam HEENT Exam: Normal Neck Exam Neck Exam: Normal Breast Exam Bilateral: Breast Exam: Normal and Soft Respiratory Exam Respiratory Exam: Normal Cardiovascular Exam Cardiovascular Exam: Normal Abdominal Exam Abdomen: Other (nontender, soft) Fundal Exam Fundus: Below Umbilicus and Firm Rectal Exam Rectal Exam: Normal Exam Perineum: Repair Intact Extremities Exam Extremity Exam: Normal Back/Spine/Pelvis Exam Back Exam: Normal Skin Exam Skin Exam: Normal Neurological Exam Neurological Exam: Normal Psychiatric Exam Psychiatric Exam: Normal Results Hemoglobin/Hematocrit: Hgb 12.1 g/dL (11.2-15.7) 04/16/21 06:47 Hct 35.2 % (36.0-46.0) L 04/16/21 06:47
--- NOTE | 2021-04-17 09:02 | W.PM.OBDISCH ---
Date of service: 04/17/21 Time of Service: 09:02 DS: Diagnosis Discharge Diagnosis (1) Term delivered: Status: Acute Discharge Plan Disposition Patient Disposition: HOME Condition: Good Discharge Details Reason For Visit: LABOR @ 39 WEEKS Admit Date/Time: 04/14/21 21:14 Admit Provider: Sharmila Nair Attending Provider: Sharmila Nair Primary Care Provider: Kathy Larios Hospital Course Hospital Course: PROM with spontaneous labor, then epidural and pitocin augmentation, , nml PP course Home Meds and New Rx's Prescriptions: No Action prenat.vits,[place],[id number] Tablet 1 tab PO DAILY RF: 0 magnesium oxide 400 mg magnesium capsule 400 mg PO DAILY RF: 0 Discharge Instructions Additional Instructions: Please keep your 2 and 6 week appointments with the registered nurse nursery, call for any questions or concerns. Stand Alone Forms: BC Instructions, NB [place] Instructions, BC Post Vaginal Deliver Activity:: Activity as Tolerated Equipment/Supplies:: No Equipment Needed Diet:: Normal Diet Discharge Orders Discharge Orders: Discharge Order (Routine); Ordered 04/17/21 Ordered By: Sharmila Nair OB:DS Summary Summary Vaginal Delivery Method: Spontaneaous Episiotomy Description: None Laceration Description: Perineal Laceration Extension: First Degree Contraception Discussed Contraception Discussed: Yes Contraceptive Plan: Not planning to use (Uses NFP), [place] Gender-Baby A: Male weight: 8 lb 6.041 oz Status at Discharge Functional status at discharge: independent ambulation Overall status at discharge: patient is progressing back to baseline Mental Status: mental status grossly normal Speech and Movement: speech and movement normal and speech clear Mood: congruent mood Affect: normal affect Exam Physical Exam Vital signs: Temp Pulse Resp BP Pulse Ox 98.0 F 80 18 128/76 99 04/16/21 20:00 04/16/21 20:00 04/16/21 20:00 04/16/21 20:00 04/16/21 20:00 Constitutional Constitutional: no acute distress HEENT Exam HEENT Exam: Normal Neck Exam Neck Exam: Normal Breast Exam Bilateral: Breast Exam: Normal and Soft Respiratory Exam Respiratory Exam: Normal Cardiovascular Exam Cardiovascular Exam: Normal Abdominal Exam Abdomen: Other (nontender, soft) Fundal Exam Fundus: Below Umbilicus and Firm Rectal Exam Rectal Exam: Normal Exam Perineum: Repair Intact Extremities Exam Extremity Exam: Normal Back/Spine/Pelvis Exam Back Exam: Normal Skin Exam Skin Exam: Normal Neurological Exam Neurological Exam: Normal Psychiatric Exam Psychiatric Exam: Normal [facility] Medical History (Updated 04/15/21 @ 23:16 by Sharmila Nair) 39 weeks gestation of Elevated glucose PROM with onset of labor within 24 hours of rupture Slow slope active phase of labor Umbilical hernia 2011 no surgery to date Surgical History (Updated 10/09/20 @ 16:07 by Brandy Jim CNM) 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 , 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 Tear of knee, anterior cruciate ligament left knee [address] [facility] 2018 Family History (Updated 10/09/20 @ 09:43 by Brandy Jim CNM) Mother Breast cancer recurrence at 72 Hyperlipidemia Other Heart disease Social History (Updated 10/09/20 @ 10:49 by Brandy Jim CNM) Smoking/Tobacco Use Status: Former Tobacco Use Second Hand Exposure: No Smoking risk assessment performed?: Yes Drug use: Occasionally Substance use type: does not use and marijuana Counseling given: Yes Details: marijuana use sparsly in past, no current use Adopted: No Household members: spouse Housing: house Number of Children: 0 What is your relationship status?: living with partner Panel score (0-1 are the most socially isolated patients): 1 Seatbelt use: always Do you feel safe at home: Yes Do you feel safe in your relationship?: Yes Victim of physical abuse: No Victim of emotional abuse: No Victim of sexual abuse: No Would you like helpful sources: No Female Reproductive History Menstrual control method: none History History 3 Para 0 Hx # Term Pregnancies 0 Multiple births 0 Hx # Pregnancies 0 Ectopic pregnancies 0 AB induced 2 Hx Number of Living Children 0 AB spontaneous 0 DS: Data Vitals/I&O Vitals and I&O: Vital Signs Temperature 98.0 F 04/16/21 20:00 Pulse 80 04/16/21 20:00 Pulse Rhythm Regular 04/16/21 20:00 Respiratory Rate 18 04/16/21 20:00 Respiratory Depth Normal 04/16/21 20:00 Blood Pressure 128/76 04/16/21 20:00 Blood Pressure Mean 93 04/16/21 20:00 Pulse Oximetry 99 04/16/21 20:00 Oxygen Delivery Method Room Air 04/14/21 22:13 Oxygen Flow Rate 0 04/14/21 22:13 Pain Level 2 04/17/21 08:48 Comment 04/16/21 20:00 Data Completed and Pending Labs on day of discharge: Labs from last 24 hours 04/16/21 10:35 Screen Negative
== END 2021-04-17 13:35 | disposition home or self-care (01) | DRG 806 ==
PROVIDERS: Admitting Provider Advanced Practice Midwife; PCP Nurse Practitioner Family; Visit Provider Advanced Practice Midwife
DX: O42.02 Full-term premature rupture of membranes, onset of labor within 24 hours of rupture (principal); O36.0930 Maternal care for other rhesus isoimmunization, third trimester, not applicable or unspecified; Z37.0 Single live birth; Z3A.39 39 weeks gestation of pregnancy; O70.0 First degree perineal laceration during delivery; O99.62 Diseases of the digestive system complicating childbirth; K59.00 Constipation, unspecified; R51.9 Headache, unspecified; K42.9 Umbilical hernia without obstruction or gangrene; O62.2 Other uterine inertia
CPT/HCPCS: 36415; 85027; 85461; 86850; 86900; 86901; 87635; 90384; J2790; J3490

== ENCOUNTER 2024-09-09 09:27 | Emergency (ER) | payer BC, SELFPAY ==
[2024-09-09 09:29] VITALS: BP 126/86; PULSE 76; RESP 16; TEMP 36.7; O2SAT 99
--- NOTE | 2024-09-09 09:30 | DI.RAD_ITS ---
Exam(s) XR HAND LT COMPLETE EXAM: XR HAND LT COMPLETE CLINICAL HISTORY: Eval foreign bodies, dog bite. TECHNIQUE: 2D digital imaging was performed. COMPARISON: CR XR THUMB RT from 09/09/2024 FINDINGS: 3 views No evidence of fracture or dislocation or abnormal soft tissue calcifications. Bone density normal. No osseous lesions nor erosions. No radiopaque foreign bodies evident. There is no gas in the soft tissues. IMPRESSION: No significant radiograph findings in the left hand. DATA REPOSITORY: RADIATION DOSE DELIVERED:
--- NOTE | 2024-09-09 09:30 | DI.RAD_ITS ---
Exam(s) XR THUMB RT EXAM: XR THUMB RT CLINICAL HISTORY: Eval foreign bodies, dog bite. TECHNIQUE: 2D digital imaging was performed. COMPARISON: No exams were available for comparison FINDINGS: 3 views No evidence of fracture or dislocation. Bone density normal. No osseous lesions. No radiopaque for eign bodies. No gas in the soft tissues. IMPRESSION: No significant radiographic findings on these three views of the right thumb. DATA REPOSITORY: RADIATION DOSE DELIVERED:
[2024-09-09 09:37] VITALS: BP 126/86; PULSE 76; RESP 16; TEMP 36.7; O2SAT 99
--- NOTE | 2024-09-09 09:43 | ED.GENADUL_ITS ---
Discharge Plan Disposition Patient Disposition: Home Condition: Stable Discharge Details Clinical Impression: Dog bite, hand Primary Care Provider: Unknown,Unknown ED Provider: Yandy Reid Home Meds and New Rx's Prescriptions: New amoxicillin-pot clavulanate 875-125 mg tablet 1 tab PO BID 7 Days Qty: 14 0RF Discharge Instructions Instructions: Animal Bites ED Additional Instructions: You were seen in the emergency department today for evaluation of dog bites to both hands. In our department you had a full physical examination performed, had an x-ray that did not show any foreign bodies or other abnormalities, and the wounds were cleaned and dressed. You were started on antibiotics, which you should take for the next week until they are gone, even if you start to feel better. Your tetanus shot was updated. The dog was vaccinated for rabies and so you did not complete a rabies series here in the emergency department today. If there are any concerns about the dog's vaccination status you can always return to the emergency department. We have provided you with a referral to establish with a primary care provider. Please follow-up with your primary care provider in the next few days to discuss this visit and any symptoms that change, worsen, or persist. Thank you for allowing us to be part of your care. HPI General Mode of arrival: ambulatory . Date/Time Provider Initiated Documentation: 09/09/24 09:28 . Limitations to Documentation: no limitations . Information obtained by: patient and old records reviewed . HPI Narrative: HPI: This is a 38-year-old female patient presenting for evaluation after a dog bite. The patient was driving and there was a small dog walking up and down the road, who did not get off the road when she exited her vehicle. She attempted to approach the dog and was bit, on her right thumb, as well as her dorsal aspect of her left hand. She did not sustain other injury or trauma during this event. Unknown if this dog is vaccinated, her is trying to track down the doctor of chiropractic at this time. She herself is not sure when her last tetanus vaccine was, was in her normal state of health prior to this event, has not taken any medications for management of symptoms and has not yet undergone any wound care. Exam: Gen: Awake and alert, in no apparent distress HEENT: Non-icteric sclera Neck: Supple Lungs: No apparent respiratory distress, normal respiratory effort. CV: Appears well perfused Abdomen: Non-distended MSK: Moves 4 extremities without apparent limitation in ROM Skin: Visualized skin without rashes, cyanosis. The patient has several superficial abrasions to the posterior aspect of the left hand with some soreness on the dorsal aspect, no palmar lesions. Right thumb with a puncture wound over the proximal phalanx and a small 1 cm laceration, well-approximated, over the dorsal aspect of the IP joint. Full range of motion of the thumb, no weakness or breakaway with resisted flexion or extension at the IP and MCP joints. Brisk capillary refill and preserved sensation. Neuro: Normal Gait, no obvious focal deficits or facial asymmetry. Speaks in full, clear sentences. Psych: Appropriate for situation. MDM: This is a 38-year-old female patient presenting for evaluation after a dog bite. Differential includes but is not limited to abrasions and lacerations, certainly considered fracture, foreign body, no evidence for ligamentous injury or neurovascular injury. Certainly this wound is at high risk for infection, and the patient requires a tetanus booster which will be provided today. Given the reported confused behavior of the dog, and our lack of knowledge regarding its vaccination status, if we are unable to determine the animals vaccination st atus once we are completed with her ED workup it would be reasonable to proceed with a rabies vaccine series. The wound will be washed and dressed, we will allow it to heal by secondary intention given the high rate of an infections with dog bites, and will obtain an x-ray to evaluate for foreign bodies. I will provide the patient with her first dose of Augmentin here in the emergency department. ED Course: X-rays independently interpreted by myself, showing no foreign bodies, free air or osseous abnormalities. We were able to confirm that the animal was vaccinated against rabies and for t his reason we will defer the rabies vaccination and immunoglobulin series. Prescription for prophylactic Augmentin sent to the patient's pharmacy, wounds cleaned and dressed, and at this time, the patient has had a full medical evaluation and is safe for discharge to home. They are hemodynamically stable, ambulatory, and tolerating PO. They are understanding of the follow-up plan and return precautions. They left our facility without incident. Yandy Reid MD Related Data Home Medications ?Medication ?Instructions ?Recorded ?Confirmed amoxicillin 875 mg-potassium 1 tab PO BID 7 days #14 tabs 09/09/24 clavulanate 125 mg tablet Previous Rx's ?Medication ?Instructions ?Recorded amoxicillin 875 mg-potassium 1 tab PO BID 7 days #14 tabs 09/09/24 clavulanate 125 mg tablet Allergies Allergy/AdvReac Type Severity Reaction Status Date / Time naproxen AdvReac Intermediate Diarrhea Verified 09/09/24 09:36 Sulfa (Sulfonamide AdvReac Intermediate hives Unverified 09/09/24 09:35 Antibiotics) DEET AdvReac Intermediate cold and Uncoded 09/09/24 09:35 clammy sweat, nausea General Stated Complaint: AnimalBite ENRIQUE: 4 Course Vital Signs Vital signs: Vital Signs Temperature 36.7 C 09/09/24 09:29 Pulse 76 09/09/24 09:29 Respiratory Rate 16 09/09/24 09:29 Blood Pressure 126/86 09/09/24 09:29 Pulse Oximetry 99 09/09/24 09:29 Temperature 36.7 C 09/09/24 09:37 Temperature Source Oral 09/09/24 09:37 Pulse 76 09/09/24 09:37 Respiratory Rate 16 09/09/24 09:37 Blood Pressure 126/86 09/09/24 09:37 Blood Pressure Position Sitting 09/09/24 09:37 Pulse Oximetry 99 09/09/24 09:37 Oxygen Delivery Method Room Air 09/09/24 09:37 Oxygen Flow Rate 0 09/09/24 09:37 Pain Level 2 09/09/24 09:37 Medical Decision Making Quality:SDOH Health Related Social Needs: No Data to Display PFSH All Active Problems (Updated 10/09/20 @ 16:07 by Brandy Jim CNM) Dog bite, hand (Acute) Routine follow-up (Acute) Allergy to sulfa drugs (Acute) Umbilical hernia (Acute) 2011 no surgery to date 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 , 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 Medical History (Updated 09/09/24 @ 10:28 by Yandy Reid MD) Term delivered Slow slope active phase of labor PROM with onset of labor within 24 hours of rupture 39 weeks gestation of Elevated glucose Rh negative state in antepartum period AMA (advanced maternal age) multigravida 35+ 34 years of age will be 35 at time of delivery, ASA due to nullip and AMA Surgical History (Updated 10/09/20 @ 16:07 by Brandy Jim CNM) Tear of knee, anterior cruciate ligament left knee [address] [facility] 2017 Family History (Updated 10/09/20 @ 09:43 by Brandy Jim CNM) Mother Breast cancer recurrence at 72 Hyperlipidemia Other Heart disease Social History (Updated 10/09/20 @ 10:49 by Brandy Jim CNM) Second Hand Exposure: No Smoking risk assessment performed?: No Drug use: Occasionally Substance use type: does not use and marijuana Counseling given: Yes Details: marijuana use sparsly in past, no current use Adopted: No Household members: spouse Housing: house Number of Children: 0 What is your relationship status?: living with partner Panel score (0-1 are the most socially isolated patients): 1 Seatbelt use: always Do you feel safe at home: Yes Do you feel safe in your relationship?: Yes Victim of physical abuse: No Victim of emotional abuse: No Victim of sexual abuse: No Would you like helpful sources: No Female Reproductive History Menstrual control method: none History History 3 Para 1 Hx # Term Pregnancies 1 Multiple births 0 Hx # Pregnancies 0 Ectopic pregnancies 0 AB induced 2 Hx Number of Living Children 1 AB spontaneous 0 Past Pregnancies Del. Date GA/Weeks # Preg Succ Route Wgt Sex Labor Lgth Anesth esia Location [facility] 04/15/21 39 No vaginal 3799.998 g Female 28 hrs 47 min earlene Persaud CNM Delivery Date: 04/15/21 Last Updated by: Serena Mason LPN PROM; Pitocin augmentation after epidural; Migdalia Valle
[2024-09-09] MEDS: Amoxicillin 875/Clav. 125 TAB PO (10:28)
[2024-09-09] MEDS: Diph,Pertuss(Acell),Tet Vac/Pf 0.5 ML SYR IM (10:28)
--- NOTE | 2024-09-09 10:43 | NUR.NOTE ---
Nursing Note: this RN cleansed bite wounds with NS and clorhexidine, provider applied steri strips to thumb wound this nurse dressed wounds.
--- NOTE | 2024-09-09 11:31 | NUR.NOTE ---
Faxed the Dog Bite form to [facility] [employer] [facility] Ethan Howard.
== END 2024-09-09 10:45 | disposition home or self-care (01) ==
LOC: ER 10:41
PROVIDERS: Emergency Provider Emergency Medicine
DX: S61.051A Open bite of right thumb without damage to nail, initial encounter (principal); S61.452A Open bite of left hand, initial encounter; Z23 Encounter for immunization; W54.0XXA Bitten by dog, initial encounter; Y93.89 Activity, other specified; Y92.414 Local residential or business street as the place of occurrence of the external cause
CPT/HCPCS: 90471; 90715; 99283; 73130; 73140

== ENCOUNTER 2024-12-29 02:36 | Outpatient (CLI) | payer BC, SELFPAY ==
[2024-12-29 11:51] LABS: Panorama Kit Sent via Fed Ex
[2024-12-29 12:01] LABS: Abs Immature Grans 0.03 10^3/uL (0.0-0.06); Absolute Basophil Count 0.04 10^3/uL (0.0-0.2); Absolute Eosinophil Count 0.06 10^3/uL (0.0-0.7); Absolute Lymphocyte Count 1.91 10^3/uL (1.2-3.4); Absolute Monocyte Count 0.67 10^3/uL (0.1-0.8); Basophils % 0.5 %; Eosinophils % 0.7 %; HCT 36.8 % (36.0-46.0); HGB 12.1 g/dL (11.2-15.7); Immature Grans % 0.4 %; Lymphocytes % 23.8 %; MCH 29.4 pg (27.0-33.0); MCHC 32.9 % (32.0-36.0); MCV 90 fL (80-95); MPV 9.2 fL (8.0-11.0); Monocytes % 8.4 %; Neutrophils % 66.2 %; Platelet Count 334 10^3/uL (130-400); RBC 4.11 10^6/uL (3.93-5.22); RDW 11.9 % (11.7-14.6); RDW-SD 38.1 fL; WBC 8.01 10^3/uL (4.4-10.8)
[2024-12-29 12:26] LABS: Hemoglobin A1C 5.3 % (<5.7)
[2024-12-29 21:48] LABS: Hepatitis B Surface Ag Negative (Negative)
[2024-12-29 22:18] LABS: Hepatitis C Ab w Rflx HCV PCR Negative (Negative)
[2024-12-29 22:19] LABS: HIV-1/2 Ag & Ab Screen Negative (Negative)
[2024-12-30 10:35] LABS: Varicella IgG Antibody Positive (See Note)
[2024-12-30 10:46] LABS: Rubella IgG Ab (UVM) Positive (See Note)
[2024-12-31 18:56] LABS: Syphilis IgG w/Reflex Nonreactive (Nonreactive)
== END 2024-12-29 02:37 | disposition home or self-care (01) ==
LOC: LBO 02:36
PROVIDERS: Visit Provider Advanced Practice Midwife
DX: Z34.91 Encounter for supervision of normal pregnancy, unspecified, first trimester (principal)
CPT/HCPCS: 36415; 86787; 86803; 86850; 86900; 86901; 87340; 87389; 87491; 87591; 83036; 85025; 86762; 86780

== ENCOUNTER 2024-12-29 11:07 | Outpatient (REF) | payer BC, SELFPAY ==
[2024-12-30 12:31] LABS: Chlamydia Result Negative (Negative); GC Result Negative (Negative)
== END 2024-12-29 11:08 | disposition home or self-care (01) ==
LOC: LBN 11:07
PROVIDERS: Visit Provider Advanced Practice Midwife
DX: Z34.91 Encounter for supervision of normal pregnancy, unspecified, first trimester (principal)
CPT/HCPCS: 87491; 87591; 87086

== ENCOUNTER 2025-04-21 04:17 | Outpatient (CLI) | payer BC, SELFPAY ==
[2025-04-21 09:28] LABS: HCT 34.3 % (36.0-46.0); HGB 11.4 g/dL (11.2-15.7); MCH 30.4 pg (27.0-33.0); MCHC 33.2 % (32.0-36.0); MCV 92 fL (80-95); MPV 9.8 fL (8.0-11.0); Platelet Count 207 10^3/uL (130-400); RBC 3.75 10^6/uL (3.93-5.22); RDW 12.9 % (11.7-14.6); RDW-SD 43.6 fL; WBC 8.54 10^3/uL (4.4-10.8)
[2025-04-21 09:42] LABS: Glucose,1 Hr (Glucola) 92 mg/dL (80-140)
== END 2025-04-21 04:18 | disposition home or self-care (01) ==
LOC: LBO 04:17
PROVIDERS: Visit Provider Advanced Practice Midwife
DX: Z34.93 Encounter for supervision of normal pregnancy, unspecified, third trimester (principal)
CPT/HCPCS: 36415; 82950; 85027; 86850; 90384

== ENCOUNTER 2025-06-02 13:56 | Outpatient (CLI) | payer BC, SELFPAY ==
[2025-06-02 14:04] VITALS: BP 122/88; PULSE 78; TEMP 36.5
[2025-06-02 14:07] VITALS: BP 122/80; PULSE 78
--- NOTE | 2025-06-02 20:51 | W.OBNST ---
Date of service: 06/02/25 Time of Service: 20:51 NST Evaluation Reason for NST Reasons for Nonstress Test: DECREASED MOVEMENT and OTHER, SEE COMMENT Reason for NST Other: Low FHR in office with doppler Gestational Age Gestational Age in Weeks and Days: 34 Weeks and 0Days Test and Monitor Explained Test/Monitor Explained: Test Explained Vital Signs Blood Pressure: 122/88 Pulse: 78 Temperature: 97.7 F NST Information Date on Monitor: 06/02/25 Time on Monitor: 13:50 Date off Monitor: 06/02/25 Time off Monitor: 14:23 Total Time on Monitor: 33 NST Interventions: None NST Evaluation Patient States Movement: Present FHR Baseline: 115 Variability: Moderate 6-25 bpm Accelerations: None NST Results: Reactive Note Ultrasound Done: N/A. NST Note Note: heart rate was 115-119 in the office with deceleration heard with doppler. Reactive NST. RTO in 2 weeks for visit. NST Reviewed and Verified by: Brandy Barr
[2025-06-02 20:52] VITALS: BP 122/88; PULSE 78; TEMP 36.5
== END 2025-06-02 14:37 | disposition home health service (06) ==
LOC: BCD 13:56 → OBS 13:58
PROVIDERS: Visit Provider Advanced Practice Midwife
DX: O36.8131 Decreased fetal movements, third trimester, fetus 1 (principal); Z3A.34 34 weeks gestation of pregnancy; O36.8331 Maternal care for abnormalities of the fetal heart rate or rhythm, third trimester, fetus 1
CPT/HCPCS: 59025

== ENCOUNTER 2025-06-02 14:11 | Outpatient (REF) | payer BC, SELFPAY | END 2025-06-02 14:12 | disposition home or self-care (01) | LOC: LBN 14:11 | PROVIDERS: Visit Provider Advanced Practice Midwife | DX: Z34.93 Encounter for supervision of normal pregnancy, unspecified, third trimester (principal) | CPT/HCPCS: 87480; 87510; 87660 ==

== ENCOUNTER 2025-06-16 13:46 | Outpatient (REF) | payer BC, SELFPAY | END 2025-06-16 13:47 | disposition home or self-care (01) | LOC: LBN 13:46 | PROVIDERS: Visit Provider Advanced Practice Midwife | DX: Z34.93 Encounter for supervision of normal pregnancy, unspecified, third trimester (principal) | CPT/HCPCS: 87081 ==

== ENCOUNTER 2025-06-27 09:21 | Outpatient (REF) | payer BC, SELFPAY | END 2025-06-27 09:22 | disposition home or self-care (01) | LOC: LBN 09:21 | PROVIDERS: Visit Provider Advanced Practice Midwife | DX: N76.0 Acute vaginitis (principal); B96.89 Other specified bacterial agents as the cause of diseases classified elsewhere | CPT/HCPCS: 87480; 87510; 87660 ==

== ENCOUNTER 2025-07-03 04:53 | Inpatient (IN) | payer BC, SELFPAY ==
[2025-07-03] VITALS (150 sets, daily range): BP systolic 93–152; BP diastolic 54–87; PULSE 71–166; RESP 16–18; TEMP 36.4–37.1; O2SAT 92–100; BMI 27.7
--- NOTE | 2025-07-03 04:54 | W.PM.OBHPL1 ---
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 HERSON Calculator Estimated Delivery Date Method Current WG Current Estimate 07/14/25 LMP (Certain) 38w 3d Other Estimates 07/16/25 Ultrasound #1 38w 1d History of Present Expected Delivery Route/Plan - CNM FOB/ - Tru Levine (2nd child together) BB will circ Prefers smaller room with dim lighting for and epidural Pt desires IOL for AMA at 39-40 wks, tentatively plan 07/11 GBS negative Specific Issues/Plan 1. 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 SMA screen negative. 1a. Accepts level 2 scan and M consult: nml level 2, M recommends 32 wk growth scan 1b. 32 week growth US @ [facility] 05/17- 97%ile, normal OCTAVIANO, multiple dilated loops in baby's catal[place] 1c. repeat US at [facility] due to bowel loops, done 06/08/25, no bowel loops visualized, cleared for delivery @ [facility] 2. 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 AMA, Hgb A1C 5.3, cfDNA: low risk male, AFP declines. 4. 5P screen negative, PHQ9 score=6 5. Umbilical hernia, plans repair after 6. RH neg - rhogam at 28 weeks, given 04/21/25 7. 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 , 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 Medical History (Updated 07/03/25 @ 05:06 by Shonda Nair) Urinary urgency during Bacterial vaginal infection Missed menses Routine follow-up Term delivered Slow slope active phase of labor PROM with onset of labor within 24 hours of rupture 39 weeks gestation of Elevated glucose 34 years of age will be 35 at time of delivery, ASA due to nullip and AMA Surgical History (Updated 10/09/20 @ 16:07 by Brandy Jim CNM) Tear of knee, anterior cruciate ligament left knee 4 [address] [facility] 2018 Family History (Updated 10/09/20 @ 09:43 by Brandy Jim CNM) Mother Breast cancer recurrence at 72 Hyperlipidemia Other Heart disease Social History (Updated 10/09/20 @ 10:49 by Brandy Jim CNM) Second Hand Exposure: No Smoking risk assessment performed?: No Drug use: Occasionally Substance use type: does not use and marijuana Counseling given: Yes Details: marijuana use sparsly in past, no current use Adopted: No Household members: spouse Housing: house Number of Children: 0 What is your relationship status?: living with partner Panel score (0-1 are the most socially isolated patients): 1 Seatbelt use: always Do you feel safe at home: Yes Do you feel safe in your relationship?: Yes Victim of physical abuse: No Victim of emotional abuse: No Victim of sexual abuse: No Would you like helpful sources: No Female Reproductive History Menstrual control method: none History History 4 Para 0 Hx # Term Pregnancies 0 Multiple births 0 Hx # Pregnancies 0 Ectopic pregnancies 0 AB induced 2 Hx Number of Living Children 0 AB spontaneous 0 Past Pregnancies Del. Date GA/Weeks # Preg Succ Route Wgt Sex Labor Lgth Anesthesia Location Prov Complic 04/15/21 39 No Yes vaginal 8 lb 6.041 oz Female 28 hrs 47 min regional [facility] Delivery Date: 04/15/21 Last Updated by: Serena Mason LPN PROM; Pitocin augmentation after epidural; Migdalia Valle [employer] Allergies and Home Medications Allergies Allergy/AdvReac Type Severity Reaction Status Date / Time naproxen AdvReac Intermediate Diarrhea Verified 06/27/25 08:30 Sulfa (Sulfonamide AdvReac Intermediate hives Verified 06/27/25 08:30 Antibiotics) DEET AdvReac Intermediate cold and Uncoded 06/27/25 08:30 clammy sweat, nausea Home Medications ?Medication ?Instructions ?Recorded ?Confirmed ?Type doxylamine succinate 25 mg tablet 25 mg PO QHS PRN 12/29/24 06/27/25 History (Unisom (doxylamine)) pyridoxine (vitamin B6) 25 mg 25 mg PO BID 01/26/25 06/27/25 History tablet vits no.126-ferrous fum 1 tab PO DAILY 02/25/25 06/27/25 History 28 mg iron-folic acid 800 mcg tablet (Classic ) aspirin 81 mg tablet 81 mg PO DAILY 03/24/25 06/27/25 History metronidazole 500 mg tablet 500 mg PO BID 7 days #14 tabs 06/28/25 Rx Exam Physical Exam Vital signs: Pulse BP 105 H 152/87 H 07/03/25 04:32 07/03/25 04:32 Vital Signs Reviewed: Yes Constitutional Constitutional: mild distress, average body habitus and cooperative Detailed Labor and Delivery Exam Dilation: 5 Effacement (%): 100 station: -2 Cervix position: posterior Amniotic Membrane Status: Ruptured (@ 0215) Rupture Method: Spontaneous Nitrazine: Positive Ferning: Present Contraction Frequency(min): q2-4 Contraction Intensity: Moderate Fetus A Heart Rate Baseline: 120 Monitor Accelerations: Present Monitor Decelerations: None Variability: Moderate (6-25 BPM) Categories: Category I Est. Weight: 8 lb 6.041 oz Est. Weight: 3800 gms Date of Membrane Rupture: 07/03/25 Time of Membrane Rupture: 02:15 HEENT Exam HEENT Exam: Normal Neck Exam Neck Exam: Normal Chest/Brest/Axilla Exam Chest Exam: Normal Breast Exam Breast Exam: Not Done Respiratory Exam Respiratory Exam: Normal Cardiovascular Exam Cardiovascular Exam: Normal Abdominal Exam Abdominal Exam: Normal (Gravid, S=D, nontender) Rectal Exam Rectal Exam: Normal Exam Exam: Normal Extremities Exam Extremities Exam: Normal Back/Spine/Pelvis Exam Back Exam: Normal Pelvis Adequate: Yes (proven to 8'6) Skin Exam Skin Exam: Normal Neurological Exam Neurological Exam: Normal Psychiatric Exam Psychiatric Exam: Normal Results Results Group Beta Strep: Negative Blood Type: B- Rubella Status: Immune Varicella Immunity: Immune Risk Assessment Risk for Shoulder Dystocia Historical/Initial OB: NEGATIVE FOR: Pelvic Abnormality, Pre- BMI>30, Previous Shoulder Dystocia or Previous Macrosomia 36 Weeks: NEGATIVE FOR: Current Gestational DM, EFW>4500gms or Maternal Weight Gain>40lbs Increased Risk?: No Delivery Plan @ 36wks: Risk for Pre-Eclampsia Date Initiated/Initials: not indicated. JK Yes, if one or more: NEGATIVE FOR: Hx Pre-E/Gest HTN, Chronic HTN, Multiple Gestation, Pre-gestational DM, Renal Disease, Systemic Lupus or APA Syndrome Yes, if 2 or more: POSITIVE FOR: Age>= 35 yrs; NEGATIVE FOR: Nulliparity, >10yr btwn pregnancies, BMI>30, ethinicty, Mother/Sister w/ Pre-E or Previous IUGR Risk for Post- Hemorrhage Initial: NEGATIVE FOR: Multiple Gestation, Previous PPH, Known Clotting Deficiency, Grand Multiparity or Anticoagulation 36 Weeks: NEGATIVE FOR: Anemia, hgb<10, Low platelets(thrombocytopenia), Gestational HTN or Pre-E, Polyhydraminios or EFW>4500gms At Risk?: No Counseled re: Active Management: Yes Risks Reviewed Risks Reviewed Upon Admission: Yes
[2025-07-03] MEDS: Normal Saline 10 ML VIAL IJ (05:00)
[2025-07-03] MEDS: Lactated Ringers 250 ML 500 ML IV (05:00)
[2025-07-03 05:19] LABS: Abs Immature Grans 0.07 10^3/uL (0.0-0.06); HCT 39.0 % (36.0-46.0); HGB 13.2 g/dL (11.2-15.7); Immature Grans % 0.5 %; MCH 30.6 pg (27.0-33.0); MCHC 33.8 % (32.0-36.0); MCV 91 fL (80-95); MPV 10.7 fL (8.0-11.0); Platelet Count 253 10^3/uL (130-400); RBC 4.31 10^6/uL (3.93-5.22); RDW 12.8 % (11.7-14.6); RDW-SD 42.5 fL; WBC 14.75 10^3/uL (4.4-10.8)
[2025-07-03] MEDS: Lactated Ringers 1,000 ML 125 ML IV ×2 (05:30→07:42)
[2025-07-03] MEDS: FentaNYL/ROPIvacaine 2 mcg/ml and 0.1% 200 ML CADD Cassette EP (05:51)
--- NOTE | 2025-07-03 06:26 | W.ANESPRE ---
General Info Date of Service Date Performed: 07/03/25 Height: 5 ft 6 in Weight: 78.018 kg Body Mass Index (BMI): 27.7 Meds Allergies and Home Medications Allergies Allergy/AdvReac Type Severity Reaction Status Date / Time naproxen AdvReac Intermediate Diarrhea Verified 06/27/25 08:30 Sulfa (Sulfonamide AdvReac Intermediate hives Verified 06/27/25 08:30 Antibiotics) DEET AdvReac Intermediate cold and Uncoded 06/27/25 08:30 clammy sweat, nausea Home Medication ?Medication ?Instructions ?Recorded doxylamine succinate 25 mg tablet 25 mg PO QHS PRN 12/29/24 (Unisom (doxylamine)) pyridoxine (vitamin B6) 25 mg 25 mg PO BID 01/26/25 tablet vits no.126-ferrous fum 1 tab PO DAILY 02/25/25 28 mg iron-folic acid 800 mcg tablet (Classic ) aspirin 81 mg tablet 81 mg PO DAILY 03/24/25 metronidazole 500 mg tablet 500 mg PO BID 7 days #14 tabs 06/28/25 Current Visit Medications: Current Medications Generic Name Dose Route Start Last Admin Trade Name Freq PRN Reason Stop Dose Admin Ringer's Solution 1,000 mls @ 125 mls/hr 07/03/25 05:00 IV INFUSION MARCELINA Sodium Chloride 0 ml 07/03/25 04:52 Normal Saline Flush 10 Ml Syr IVP PRN PRN Sodium Chloride 0 ml 07/03/25 08:30 Normal Saline Flush 10 Ml Syr IVP BID MARCELINA Sodium Chloride 0 ml 07/03/25 04:52 Normal Saline 10 Ml Vial IJ DIRECTED PRN PFSH Active Problems Active Problems: Problem Status Onset Code Normal labor Acute O80, Z37.9 Rh negative state in antepartum period Acute O26.899, Z67.91 AMA (advanced maternal age) multigravida 35+ Acute O09.529 Acute Z34.90 Allergy to sulfa drugs Acute Z88.2 Umbilical hernia Acute K42.9 Cystic fibrosis carrier Acute Z14.1 Congenital duodenal atresia Acute Q41.0 Medical History Medical History (Updated 07/03/25 @ 05:06 by Shonda Nair) Urinary urgency during Bacterial vaginal infection Missed menses Routine follow-up Term delivered Slow slope active phase of labor PROM with onset of labor within 24 hours of rupture 39 weeks gestation of Elevated glucose 34 years of age will be 35 at time of delivery, ASA due to nullip and AMA Surgical History Surgical History (Updated 10/09/20 @ 16:07 by Brandy Jim CNM) Tear of knee, anterior cruciate ligament left knee [address] [facility] 2017 Tobacco Smoking/Tobacco Use Status: Never Passive smoking exposure: No Second hand exposure: No Alcohol Alcohol Intake: never Substance Use Substance use: Occasionally Substance use type: does not use and marijuana Details: marijuana use sparsly in past, no current use Prental History History 4 Para 0 Hx # Term Pregnancies 0 Multiple births 0 Hx # Pregnancies 0 Ectopic pregnancies 0 AB induced 2 Hx Number of Living Children 0 AB spontaneous 0 Past Pregnancies Del. Date GA/Weeks # Preg Succ Route Wgt Sex Labor Lgth Anesthesia Location Prov Complic 04/15/21 39 No Yes vaginal 3799.998 g Female 28 hrs 47 min regional [facility] Delivery Date: 04/15/21 Last Updated by: Serena Mason LPN PROM; Pitocin augmentation after epidural; Migdalia Valle Vital Signs and Lab Results Vital Signs Most Recent Vital Signs in EMR: Most Recent Vital Signs Temp Pulse Resp BP Pulse Ox 37.1 C 103 H 18 122/72 100 07/03/25 05:14 07/03/25 06:22 07/03/25 05:14 07/03/25 06:16 07/03/25 06:22 Lab Results 07/03/25 05:05 Blood Type / Crossmatch: Antibody Screen POSITIVE Today Complete Blood Count: WBC, (4.4-10.8) 14.75 10^3/uL H Today, 05:05 RBC, (3.93-5.22) 4.31 10^6/uL Today, 05:05 Hgb, (11.2-15.7) 13.2 g/dL Today, 05:05 Hct, (36.0-46.0) 39.0 % Today, 05:05 Plt Count, (130-400) 253 10^3/uL Today, 05:05 Anesthesia Assessment and Plan Anesthesia History Personal History: No History of Anesthesia Complications and PONV Family History: No Family History of Anesthesia Complications Exercise Tolerance Exercise Tolerance: Metabolic Equivalents>4 Cardiac & Pulmonary Exam Cardiac Exam: Normal S1/S2 Heart Sounds Pulmonary Exam: Clear Bilateral Breath Sounds Implantable Cardiac Device Does patient have a Pacemaker or an ICD?: No Airway Exam Known Difficult Airway: No Mallampati Class: 1 Mouth Opening: Normal (> 3cm) Thyromental Distance: Greater than 3 cm Neck Range of Motion: Full ROM Neck Circumference: Normal Teeth Condition: Normal Dentition ASA Classification ASA Score: ASA 2 Emergency Case?: No NPO Status NPO Status: Full Stomach Status Status: Confirmed Anesthesia Plan Resuscitation Status: Full Code Anesthesia Technique: Epidural Anesthesia Airway Planned: Natural Airway Pain Management: Epidural Monitors Used: Standard Monitors Preoperative Comments:: 39 yo @ 38 wks requesting labor analgesia. Sig PMHx: No major. Non-smoker. No HTN No asthma/RAD Plt 253 Previous Anes: - Epidural, SAUL 7 cm, catheter taped at 15 cm, good effect. - ACL repair, LMA supreme 4, easy mask, no issues.
--- NOTE | 2025-07-03 06:31 | W.ANESNEU ---
Epidural/Spinal Catheter Date Performed: 07/03/25 Procedure Start: 05:45 Procedure Stop: 06:00 Requesting Provider: Shonda Nair Procedure Location: Obstetrics Reason Performed: Labor Epidural Standard Monitors Applied: Blood Pressure and SpO2 Patient Position: Sitting Sedation Given (Indicate Dose Given): No Sedation given Patient Mental Status: Awake Sterility: Hand Hygiene, Surgical Cap, Surgical Mask, Sterile Gloves and Sterile Drape/Sheet Procedure Location: L3-L4 Interspace Epidural Needle: Tuohy 17 Guage Needle Length: 3.5 Inch Needle Approach: Midline Epidural Procedure: 1% Lidocaine to skin and subcutaneous tissue with 25G needle and SAUL to Saline Used Catheter Placed?: Catheter Placed Test Dose (Indicate Dose Given): 3ml 1.5% Lidocaine with 1:200K Epinephrine Given and Negative Test Dose Loss of Resistance Depth (cm): 6 Catheter depth at skin (cm): 12 Dressing: Sorbaview Dressing Placed, Mastisol Used and Dressing reinforced with Tape Epidural Provider Bolus (Indicate Dose Given): Total Ropivacaine 0.1% with Fentanyl 2mcg/ml Given from pump. (ml) Dose:: 7 mL Additives (Indicate Dose Given ): None Infusion Medication: Medication Infusion Began Medication Infusion: Ropivacaine 0.1% with Fentanyl 2mcg/ml Maintenance Infusion Rate (ml/hour): 10 PCEA Bolus Dose (ml): 5 Block Level: N/A Paresthesia: None Ultrasound: Used to nirav site Number of Attempts (See previous attempts in note section): 1 Procedure Tolerated: No Complications Procedure Outcome: Successful Procedure Comment:: Straight forward placement with slight redirect to more flat angle. Catheter threaded easily. After loading dose set up noted to be more left sided, which she feels may have been the same as last time. Educated on utilizing gravity to aid in fluid flow to the less effected side. Educated on PRNs. Educated on PCEA. She had no further questions, and was encouraged to reach out with and questions or concerns. Times are rough estimates based of of consent and vital, they unfortunately where not captured in real time Performed By: Cresencio Hong
--- NOTE | 2025-07-03 07:33 | W.PM.OBNL1 ---
Date of service: 07/03/25 Time of Service: 07:33 Informed Consent Informed Consent: Regional Anesthesia and Risk,Benefits,Alternatives Discussed Pelvic Exam Dilation: 7 Effacement (%): 80 station: -1 Objective Abnormal lab results 07/03/25 Range/Units 05:05 WBC 14.75 H (4.4-10.8) 10^3/uL Absolute Neutrophils 13.19 H (1.2-6.7) 10^3/uL Absolute Lymphocytes 0.86 L (1.2-3.4) 10^3/uL Temp Pulse Resp BP Pulse Ox 98.7 F 80 18 105/59 L 99 07/03/25 05:14 07/03/25 07:32 07/03/25 05:14 07/03/25 07:17 07/03/25 07:32 Laboratory Results WBC 14.75 10^3/uL (4.4-10.8) H 07/03/25 05:05 RBC 4.31 10^6/uL (3.93-5.22) 07/03/25 05:05 Hgb 13.2 g/dL (11.2-15.7) 07/03/25 05:05 Hct 39.0 % (36.0-46.0) 07/03/25 05:05 MCV 91 fL (80-95) 07/03/25 05:05 MCH 30.6 pg (27.0-33.0) 07/03/25 05:05 MCHC 33.8 % (32.0-36.0) 07/03/25 05:05 RDW 12.8 % (11.7-14.6) 07/03/25 05:05 Plt Count 253 10^3/uL (130-400) 07/03/25 05:05 MPV 10.7 fL (8.0-11.0) 07/03/25 05:05 Immature Gran % 0.5 % 07/03/25 05:05 Neutrophils % 89.4 % 07/03/25 05:05 Lymphocytes % 5.8 % 07/03/25 05:05 Monocytes % 3.9 % 07/03/25 05:05 Eosinophils % 0.2 % 07/03/25 05:05 Basophils % 0.2 % 07/03/25 05:05 Nucleated RBC % 0.0 % (0.0-0.3) 07/03/25 05:05 Absolute Neutrophils 13.19 10^3/uL (1.2-6.7) H 07/03/25 05:05 Absolute Lymphocytes 0.86 10^3/uL (1.2-3.4) L 07/03/25 05:05 Absolute Monocytes 0.58 10^3/uL (0.1-0.8) 07/03/25 05:05 Absolute Eosinophils 0.03 10^3/uL (0.0-0.7) 07/03/25 05:05 Absolute Basophils 0.03 10^3/uL (0.0-0.2) 07/03/25 05:05 ABO/Rh B Negative 07/03/25 05:05 Antibody Screen POSITIVE 07/03/25 05:05 Subjective Interval history since last seen: Stepped in to see patient with heart rate deceleration. Nurses at bedside, position changes from right lateral to left lateral. Fluid bolus is running. SVE 7 cm, 80% with return to heart rate to 150's. CNM aware Results Hemoglobin/Hematocrit: Hgb 13.2 g/dL (11.2-15.7) 07/03/25 05:05 Hct 39.0 % (36.0-46.0) 07/03/25 05:05 Abnormal Lab Findings: Abnormal Labs 07/03/25 05:05 WBC 14.75 H Absolute Neutrophils 13.19 H Absolute Lymphocytes 0.86 L
[2025-07-03] MEDS: Ondansetron 4 MG/2 ML VIAL IVP (07:42)
--- NOTE | 2025-07-03 08:26 | PGE_ITS ---
Date of service: 07/03/25 Time of Service: 08:26 Informed Consent Informed Consent: Augmentation of Labor and Risk,Benefits,Alternatives Discussed Pelvic Exam Dilation: 7 Effacement (%): 100 station: -1 Cervix Position: mid Contractions Monitor Mode: External Contraction Frequency(min): 1 per 10 minutes since epidural Intensity: Mild/Moderate Fetus A Monitor: External (US) Heart Rate Baseline: 130 Variability: Moderate (6-25 BPM) Categories: Category I Decelerations: None (an hour ago there was a decel associated with hypotension, resolved with position change and IV fluid bolus) Amniotic Membrane Status: Ruptured Assessment and Plan Assessment and plan (1) Normal labor: Status: Acute Assessment and plan: A: Effective epidural though somewhat asymetrical, 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 Anticipate Objective Abnormal lab results 07/03/25 Range/Units 05:05 WBC 14.75 H (4.4-10.8) 10^3/uL Absolute Neutrophils 13.19 H (1.2-6.7) 10^3/uL Absolute Lymphocytes 0.86 L (1.2-3.4) 10^3/uL Temp Pulse Resp BP Pulse Ox 98.5 F 109 H 18 120/71 100 07/03/25 07:17 07/03/25 08:22 07/03/25 05:14 07/03/25 08:16 07/03/25 08:22 Laboratory Results WBC 14.75 10^3/uL (4.4-10.8) H 07/03/25 05:05 RBC 4.31 10^6/uL (3.93-5.22) 07/03/25 05:05 Hgb 13.2 g/dL (11.2-15.7) 07/03/25 05:05 Hct 39.0 % (36.0-46.0) 07/03/25 05:05 MCV 91 fL (80-95) 07/03/25 05:05 MCH 30.6 pg (27.0-33.0) 07/03/25 05:05 MCHC 33.8 % (32.0-36.0) 07/03/25 05:05 RDW 12.8 % (11.7-14.6) 07/03/25 05:05 Plt Count 253 10^3/uL (130-400) 07/03/25 05:05 MPV 10.7 fL (8.0-11.0) 07/03/25 05:05 Immature Gran % 0.5 % 07/03/25 05:05 Neutrophils % 89.4 % 07/03/25 05:05 Lymphocytes % 5.8 % 07/03/25 05:05 Monocytes % 3.9 % 07/03/25 05:05 Eosinophils % 0.2 % 07/03/25 05:05 Basophils % 0.2 % 07/03/25 05:05 Nucleated RBC % 0.0 % (0.0-0.3) 07/03/25 05:05 Absolute Neutrophils 13.19 10^3/uL (1.2-6.7) H 07/03/25 05:05 Absolute Lymphocytes 0.86 10^3/uL (1.2-3.4) L 07/03/25 05:05 Absolute Monocytes 0.58 10^3/uL (0.1-0.8) 07/03/25 05:05 Absolute Eosinophils 0.03 10^3/uL (0.0-0.7) 07/03/25 05:05 Absolute Basophils 0.03 10^3/uL (0.0-0.2) 07/03/25 05:05 ABO/Rh B Negative 07/03/25 05:05 Antibody Screen POSITIVE 07/03/25 05:05 Antibody Identification Anti-D 07/03/25 05:05 Vital Signs Reviewed: Yes Subjective Interval history since last seen: Epidural is effective but less so on the right side, nausea returned and she received Zofran to good effect.
[2025-07-03] MEDS: Oxytocin/Normal Saline 30 UNIT/500 ML BAG 2 UNITS IV (09:26)
[2025-07-03] MEDS: Acetaminophen 325 MG TAB 650 MG PO ×2 (13:37→23:33)
[2025-07-03] MEDS: Ibuprofen 600 MG TAB PO ×2 (13:37→23:33)
[2025-07-03] MEDS: Dibucaine 1% 28 GM TUBE TP (13:37)
[2025-07-03] MEDS: Hamamelis Leaf/Glycerin 100 EACH BOX PR (13:38)
--- NOTE | 2025-07-03 15:17 | W.OBDELIVERY ---
Date of service: 07/03/25 Time of Service: 10:30 OB Labor/ Delivery Information Baby A Delivery Delivery Method: Spontaneaous Presentation: Cephalic Cephalic Position: Vertex Vertex Position: Right Occipital Anterior Cord Description-Baby A: 3 Vessels, Nuchal Cord, Reduced and Clamped/Cut Amniotic Fluid: Clear Quantitative Blood Loss: 450 Delivery Outcome: Liveborn Transferred: Remains with Mother Note: Pt resting well with dense epidural in effect, contractions had spaced out at 7 cm dilation, low dose pitocin augmentation begun @ 2 mu/min and shortly thereafter pt found to be fully dilated and +3 station, category 2 tracing due to variable decels noted and coached pushing begun. At one point FHT dropped to 40 BPM for 60 seconds, Dr. Ahumada requested to bedside in case of need for vacuum assist. Pt pushed strongly with legs supported and was accomplished over attempted intact perineum, loose nuchal cord reduced over head, shoulders delivered with ease and infant to mother's arms immediately. bolus started, cord clamped and cut by FOB @ 5 minutes of age, cord blood collected and Anderson placenta delivered intact with 3VC. First degree perineal laceration repaired under epidural anesthesia with 3.0 vicryl, no other lacerations visualized, fundus firm below umbilicus and lochia was minimal. Apgars 7/8, strong family bonding observed, weight 3885 gms. Providers Doctor: Serena Ahumada Nurse Dean Of Boys: Shonda Nair Social Media Marketing Specialist: Cresencio Hong Nurse: Chelsie Saavedra Nurse: Claudette Mares Labor/Delivery Information Number of Babies in Womb: 1 Steroids Given: None Reason Steroids Not Administered: N/A Group Beta Strep: Negative Antibiotics Administered: No Rubella Status: Immune Blood Type: B- Varicella Immunity: Immune Medication in Delivery: pitocin Maternal Complications: None Shoulder Dystocia: No Stages of Labor Onset of Labor Date: 07/02/25 Onset of Labor Time: 23:00 Complete Dilatation Date: 07/03/25 Complete Dilatation Time: 09:30 Labor - Stage 1 Duration: 10 hours and 30 minutes ROM Baby A: 07/03/25 ROM Baby A: 02:15 ROM Total Time- Baby A: [id number] Delivery Date-Baby A: 07/03/25 Delivery Time-Baby A: 10:21 Labor Stage 2 Duration: 51 minutes Placenta Delivery Date-Baby A: 07/03/25 Placenta Delivery Time-Baby A: 10:27 Labor-Stage 3 Duration: 6 minutes Total Length of Labor-Baby A: 11 hours and 21 minutes Placenta Cultured: No Placenta Status: Delivered Baby A Gender: Male Gestational Status: Early Term (37-38.6 wks) Gestational Age in Weeks/Days: 38 Weeks and 3 Days weight: 8 lb 9.039 oz Weight Comment: 3885 gms Length-Baby A: 21 in Head Circumference-Baby A: 14.75 in Score-1 Minute Interval(Baby A) Heart Rate-1 minute: 100 BPM or Greater Respiratory Effort- 1 minute: Slow Respiration/Weak Cry Muscle Tone-1 minute: Active Movement Reflex Response-1 minute: Prompt Response Color-1 minute: Pallor or Cyanosis Total Score-1 minute: 7 Score-5 Minute Interval(Baby A) Heart Rate- 5 minute: 100 BPM or Greater Respiratory Effort-5 minute: Slow Respiration/Weak Cry Muscle Tone-5 minute: Active Movement Reflex Response-5 minute: Prompt Response Color-5 minute: Bluish Hands or Feet Total Score- 5 minute: 8
--- NOTE | 2025-07-03 16:18 | W.ANESPOSTOP ---
Postoperative Evaluation Date, Time and Location Date Performed: 07/03/25 Time Performed: 16:18 Patient Location: Obstetrics Vital Signs Most Recent Imported Vital Signs: Most Recent Vital Signs Temp Pulse Resp BP Pulse Ox 36.4 C L 92 H 16 116/73 97 07/03/25 15:02 07/03/25 15:02 07/03/25 15:02 07/03/25 15:02 07/03/25 15:02 Assessment Mental Status: Awake (Alert & Oriented to Patient Baseline) Airway and Respiratory Function: Patent airway with normal (patient baseline) respiratory exam Cardiovascular Function: Hemodynamically Stable Hydration Status: Adequately Hydrated Nausea & Vomiting: No Nausea or Vomiting Pain: Pain is tolerable per patient Peripheral Nerve Block: Patient did not receive a nerve block
[2025-07-04 02:32] VITALS: BP 133/90; PULSE 68; RESP 18
[2025-07-04 06:39] VITALS: BP 120/77; PULSE 69; RESP 18
[2025-07-04] MEDS: Acetaminophen 325 MG TAB 650 MG PO ×2 (08:00→15:06)
[2025-07-04] MEDS: Ibuprofen 600 MG TAB PO ×2 (08:00→15:07)
[2025-07-04] MEDS: RHO(D) Immune Globulin 1,500 UNIT Syringe 1500 UNIT IM (08:02)
[2025-07-04 08:50] VITALS: BP 116/73; PULSE 68; RESP 18; TEMP 36.6; O2SAT 97
--- NOTE | 2025-07-04 09:40 | OBPPV_ITS ---
Date of service: 07/04/25 Time of Service: 09:40 Assessment and Plan Assessment and plan (1) Term delivered: Status: Acute (2) Care and examination of lactating mother: Status: Acute Assessment and plan: A: PPD#1, nml recovery; off to a good start satisfied with experience P: Pt desires discharge to home today RhoGam to be given if indicated Written instructions reviewed and given to pt F/up at 2 & 6 wks Pt declines hormonal or device for contraception, vasectomy is planned Subjective Subjective Patient comments: No complaints, Pain well controlled, Tolerating diet and Flatus present Patient's Mood: happy [place] baby status: Doing well, Nursing well, Rooming in and Strong Bonding Observed [place] feeding status: Exclusively breast feeding Exam Physical Exam Vital signs: Temp Pulse Resp BP Pulse Ox 97.9 F 68 18 116/73 97 07/04/25 08:50 07/04/25 08:50 07/04/25 08:50 07/04/25 08:50 07/04/25 08:50 Vital Signs Reviewed: Yes Constitutional Constitutional: no acute distress, average body habitus and cooperative HEENT Exam HEENT Exam: Normal Neck Exam Neck Exam: Normal Breast Exam Bilateral: Breast Exam: Normal and Soft Nipple Exam: Normal and Uninjured Respiratory Exam Respiratory Exam: Normal Cardiovascular Exam Cardiovascular Exam: Normal Abdominal Exam Abdomen: Other (soft, nontender) Fundal Exam Fundus: Below Umbilicus and Firm Rectal Exam Rectal Exam: Normal Exam Perineum: Repair Intact Extremities Exam Extremity Exam: Normal, Full ROM and Warm to Touch Back/Spine/Pelvis Exam Back Exam: Normal Skin Exam Skin Exam: Normal Neurological Exam Neurological Exam: Normal Psychiatric Exam Psychiatric Exam: Normal Results Hemoglobin/Hematocrit: Hgb 13.2 g/dL (11.2-15.7) 07/03/25 05:05 Hct 39.0 % (36.0-46.0) 07/03/25 05:05 Abnormal Lab Findings: Abnormal Labs 07/03/25 05:05 WBC 14.75 H Absolute Neutrophils 13.19 H Absolute Lymphocytes 0.86 L
--- NOTE | 2025-07-04 09:43 | W.PM.OBDISCH ---
Date of service: 07/04/25 Time of Service: 09:43 DS: Diagnosis Discharge Diagnosis (1) Term delivered: Status: Acute (2) Care and examination of lactating mother: Status: Acute Discharge Plan Disposition Patient Disposition: Home Condition: Improving Discharge Details Reason For Visit: Labor at Term, SROM Admit Date/Time: 07/03/25 04:53 Admit Provider: Shonda Nair Attending Provider: Shonda Nair Primary Care Provider: Unknown,Unknown Hospital Course Hospital Course: Admitted in active labor, received epidural anesthesia and with a very low dose of pitocin augmentation proceeded with . course has been normal, pt desires discharge on PPD#1 Home Meds and New Rx's Prescriptions: No Action Classic 28 mg iron- 800 mcg tablet 1 tab PO DAILY Discharge Instructions Additional Instructions: Please keep your 2 and 6 week appointments with the midwives, call for any and all conerns and questions. Stand Alone Forms: BC Instructions, BC Post Vaginal Deliver, Portal Information Activity:: Activity as Tolerated Equipment/Supplies:: No Equipment Needed Diet:: Normal Diet OB:DS Summary Summary Vaginal Delivery Method: Spontaneaous Laceration Extension: First Degree Contraception Discussed Contraception Discussed: Yes Contraceptive Plan: Foam/Condoms and Vasectomy, Lyn[place] Gender-Baby A: Male weight: 8 lb 9.039 oz Status at Discharge Functional status at discharge: independent ambulation Overall status at discharge: patient is progressing back to baseline Mental Status: mental status grossly normal Speech and Movement: speech and movement normal Mood: congruent mood Affect: normal affect Exam Physical Exam Vital signs: Temp Pulse Resp BP Pulse Ox 97.9 F 68 18 116/73 97 07/04/25 08:50 07/04/25 08:50 07/04/25 08:50 07/04/25 08:50 07/04/25 08:50 Constitutional Constitutional: no acute distress, average body habitus and cooperative HEENT Exam HEENT Exam: Normal Neck Exam Neck Exam: Normal Breast Exam Bilateral: Breast Exam: Normal and Soft Respiratory Exam Respiratory Exam: Normal Cardiovascular Exam Cardiovascular Exam: Normal Abdominal Exam Abdomen: Other (soft, nontender) Fundal Exam Fundus: Below Umbilicus and Firm Rectal Exam Rectal Exam: Normal Exam Perineum: Repair Intact Extremities Exam Extremity Exam: Normal, Full ROM and Warm to Touch Back/Spine/Pelvis Exam Back Exam: Normal Skin Exam Skin Exam: Normal Neurological Exam Neurological Exam: Normal Psychiatric Exam Psychiatric Exam: Normal PFSH All Active Problems (Updated 10/09/20 @ 16:07 by Brandy Jim CNM) Term delivered (Acute) Care and examination of lactating mother (Acute) care and examination (Acute) Rh negative state in antepartum period (Acute) Allergy to sulfa drugs (Acute) Umbilical hernia (Acute) 2011 no surgery to date 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 2018 Family History (Updated 10/09/20 @ 09:43 by Brandy Jim CNM) Mother Breast cancer recurrence at 72 Hyperlipidemia Other Heart disease Social History (Updated 10/09/20 @ 10:49 by Brandy Jim CNM) Smoking/Tobacco Use Status: Never Second Hand Exposure: No Smoking risk assessment performed?: Yes Alcohol Intake: never Drug use: Occasionally Substance use type: does not use and marijuana Counseling given: Yes Details: marijuana use sparsly in past, no current use Adopted: No Household members: spouse Housing: house Number of Children: 0 What is your relationship status?: living with partner Panel score (0-1 are the most socially isolated patients): 1 Seatbelt use: always Do you feel safe at home: Yes Do you feel safe in your relationship?: Yes Victim of physical abuse: No Victim of emotional abuse: No Victim of sexual abuse: No Would you like helpful sources: No Female Reproductive History Menstrual control method: none History History 4 Para 0 Hx # Term Pregnancies 0 Multiple births 0 Hx # Pregnancies 0 Ectopic pregnancies 0 AB induced 2 Hx Number of Living Children 0 AB spontaneous 0 Past Pregnancies Del. Date GA/Weeks # Preg Succ Route Wgt Sex Labor Lgth Anesthesia Location Prov Complic 04/15/21 39 No Yes vaginal 8 lb 6.041 oz Female 28 hrs 47 min regional [facility] Delivery Date: 04/15/21 Last Updated by: Serena Mason LPN PROM; Pitocin augmentation after epidural; Migdalia Valle DS: Data Vitals/I&O Vitals and I&O: Vital Signs Temperature 97.9 F 07/04/25 08:50 Temperature Source Oral 07/04/25 08:50 Pulse 68 07/04/25 08:50 Pulse Rhythm Regular 07/04/25 08:50 Respiratory Rate 18 07/04/25 08:50 Respiratory Depth Normal 07/03/25 08:55 Blood Pressure 116/73 07/04/25 08:50 Blood Pressure Mean 87 07/04/25 08:50 Pulse Oximetry 97 07/04/25 08:50 Oxygen Delivery Method Room Air 07/03/25 05:14 Oxygen Flow Rate 0 07/03/25 05:14 Pain Level 3 07/03/25 23:33 Intake & Output 07/03/25 07/03/25 07/04/25 11:59 23:59 11:59 Intake Total 610.367 / 2025.000 1414.633 / 2025.000 Output Total 800 / 1800 1000 / 1800 Balance -189.633 / 225.000 414.633 / 225.000 Weight 172 lb Intake: IV 610.367 / 2025.000 1414.633 / 2025.000 Output: Urine 1000 / 1000 Emesis 800 / 800 Other: Urine Color Yellow Pale Comment Patient voided during labor Data Completed and Pending Pending Labs at Discharge: 07/03/25 07/03/25 05:05 19:50 WBC 14.75 H RBC 4.31 Hgb 13.2 Hct 39.0 MCV 91 MCH 30.6 MCHC 33.8 RDW 12.8 Plt Count 253 MPV 10.7 Immature Gran % 0.5 Neutrophils % 89.4 Lymphocytes % 5.8 Monocytes % 3.9 Eosinophils % 0.2 Basophils % 0.2 Nucleated RBC % 0.0 Absolute Neutrophils 13.19 H Absolute Lymphocytes 0.86 L Absolute Monocytes 0.58 Absolute Eosinophils 0.03 Absolute Basophils 0.03 ABO/Rh B Negative Antibody Screen POSITIVE Antibody Identification Anti-D Antigen Identification D Antigen - NEGATIVE Screen Pending Rhogam Unit Number [id number] Unit Expiration Date 10/25/25 Product Lot # [id number]
== END 2025-07-04 17:20 | disposition home or self-care (01) | DRG 395 ==
PROVIDERS: Admitting Provider Advanced Practice Midwife; Visit Provider Advanced Practice Midwife
DX: K92.89 Other specified diseases of the digestive system (principal); Z37.0 Single live birth; Z3A.38 38 weeks gestation of pregnancy; O70.0 First degree perineal laceration during delivery; O69.81X0 Labor and delivery complicated by cord around neck, without compression, not applicable or unspecified; K42.9 Umbilical hernia without obstruction or gangrene; Z14.1 Cystic fibrosis carrier; O26.893 Other specified pregnancy related conditions, third trimester; Z67.91 Unspecified blood type, Rh negative; Z87.738 Personal history of other specified (corrected) congenital malformations of digestive system
CPT/HCPCS: 85461; 86850; 86900; 86901; 90384; 85025; 86870; 86902; J2405; J2790